=== PATIENT | female | born 1970 | race African-American/Black ===

== ENCOUNTER 2018-02-28 21:49 | Inpatient (IN) | payer OTHER ==
--- NOTE | 2018-02-28 21:55 | PDOC ---
History of Present Illness - General Stated Complaint: BREATHING ISSUES,ANXIETY Time Seen by Provider: 02/28/18 21:55 History Source: Patient Exam Limitations: No Limitations - History of Present Illness Initial Comments: 02/28/18 22:59 Best Contact: Pmhx: Asthma/no history of intubations/last asthma attack: 2 months ago Pshx: Right-sided pneumothorax/chest tube Allergies: NKDA 47-year-old female presents to the emergency department with her complaining of short of breath 9 hours. He she took 1 nebulizer treatment at home at approximately 2125 hrs. this evening with some relief. Patient states for the past 5 days, she's had cold symptoms(rhinorrhea, nasal congestion without facial pain). Patient denies any fever or chills, nausea/vomiting, earaches, sore throat, cough, neck pain/stiffness, chest pain, abdominal discomfort. Patient states this is not one of her severe asthma attacks. She categorizes today's asthma attack as moderate. Timing/Duration: reports: intermittent Past History - Past Medical History Allergies/Adverse Reactions: Allergies Allergy/AdvReac Type Severity Reaction Status Date / Time No Known Allergies Allergy Verified 02/28/18 22:00 Home Medications: Ambulatory Orders Albuterol Sulfate Inhaler - [Ventolin Hfa Inhaler -] 1 - 2 inh PO QID 02/28/18 Mometasone/Formoterol [Dulera 100 Mcg/5 Mcg Inhaler] 10 gm IH DAILY 02/28/18 Montelukast Sodium [Singulair] 10 mg PO DAILY 02/28/18 Prednisone 10 mg PO DAILY 02/28/18 Review of Systems - Review of Systems Able to Perform ROS?: Yes Comments:: 02/28/18 23:02 CONSTITUTIONAL: Absent: fever, chills, diaphoresis, generalized weakness, malaise, loss of appetite HEENT: +rhinorrhea, nasal congestion Absent: throat pain, throat swelling, difficulty swallowing, mouth swelling, ear pain, eye pain, visual Changes CARDIOVASCULAR: Absent: chest pain, loss of consciousness, palpitations, irregular heart rate, peripheral edema RESPIRATORY: +SOB Absent: cough, dyspnea with exertion, orthopnea, wheezing, stridor, hemoptysis GASTROINTESTINAL: Absent: abdominal pain, abdominal distension, nausea, vomiting, diarrhea, constipation, melena, hematochezia GENITOURINARY: Absent: dysuria, frequency, urgency, hesitancy, hematuria, flank pain, genital pain MUSCULOSKELETAL: Absent: myalgia, arthralgia, joint swelling SKIN: Absent: rash, itching, pallor Is the patient limited Croatian proficient: No *Physical Exam - Physical Exam Comments: 02/28/18 23:02 GENERAL: Well developed, well nourished. Awake and alert. No acute distress. HEENT: Normocephalic, atraumatic. PERRLA, EOMI. No conjunctival pallor. Sclera are non- icteric. Moist mucous membranes. Oropharynx is clear. NECK: Supple. Full ROM. No JVD. Carotid pulses 2+ and symmetric, without bruits. No thyromegaly. No lymphadenopathy. CARDIOVASCULAR: Regular rate and rhythm. No murmurs, rubs, or gallops. Distal pulses are 2+ and symmetric. PULMONARY: +Lungs: scattered exp wheezes Neg accessory muscle use No evidence of respiratory distress. No wheezing, rales or rhonchi. ABDOMINAL: Soft. Non-tender. Non-distended. No rebound or guarding. No organomegaly. Normoactive bowel sounds. MUSCULOSKELETAL Normal range of motion at all joints. No bony deformities or tenderness. No CVA tenderness. EXTREMITIES: No cyanosis. No clubbing. No edema. No calf tenderness. SKIN: Warm and dry. Normal capillary refill. No rashes. No jaundice. 03/01/18 03:21 Heart Score/ECG Review - History History: Slightly suspicious - Electrocardiogram EKG: Normal - Age Age: >/= 65 - Risk Factors Risk Factors Heart Score: Yes Hx Obesity Based on the list above the patient has:: 1-2 risk factors - Troponin Troponin: </= normal limit - Score Heart Score - Total: 3 ED Treatment Course - LABORATORY CBC & Chemistry Diagram: 02/28/18 22:00 02/28/18 22:00 - RADIOLOGY Radiograph Interpretation: 02/28/18 23:03 CXR: 2v NAD Progress Note - Progress Note Progress Note: 2258hrs: No accessory muscle use Lung sounds: + wheezes scattered Cardiac: Regular rate and rhythm Pulse ox: 89% 2352hrs: Pulse ox 88% 0132hrs: Pulse ox 91% 0312hrs: Pulse ox 90% 0353hrs: Spoke to Dr. Hurley/hospitalist/ will admit med/surg *DC/Admit/Observation/Transfer Diagnosis at time of Disposition: Exacerbation of asthma Qualifiers: Asthma severity: moderate Asthma persistence: persistent Qualified Code(s): J45.41 - Moderate persistent asthma with (acute) exacerbation - Discharge Dispostion Condition at time of disposition: Guarded Admit: Yes - Referrals Referrals: ON STAFF,NOT [Primary Care Provider] - - Patient Instructions - Post Discharge Activity
[2018-02-28] MEDS ORDERED: ALBUTEROL SO4 2.5/IPRATROPIUM 0.5 INH SOL 3 ML VIAL.NEB. NEB ONE (21:56)
[2018-02-28] MEDS ORDERED: MAGNESIUM SULFATE IN WATER 2 GM/50 ML IVPB IVPB ONE (22:00)
[2018-02-28 22:06] LABS: BASO % 0.3 % (0-2.0); EOS % 0.2 % (0-4.5); HEMATOCRIT 35.7 % (32.4-45.2); HEMOGLOBIN 12.2 GM/dL (10.7-15.3); LYMPH % 14.4 % (8-40); MCH 32.9 pg (25.7-33.7); MCHC 34.1 g/dl (32.0-36.0); MEAN CELL VOLUME 96.5 fl (80-96); MEAN PLT VOLUME 6.9 fl (7.5-11.1); MONO % 6.4 % (3.8-10.2); NEUT % 78.7 % (42.8-82.8); PLATELET COUNT 258 K/MM3 (134-434); WHITE BLOOD COUNT 10.1 K/mm3 (4.0-10.0)
[2018-02-28] MEDS ORDERED: MAGNESIUM SULF 50% (8.12 MEQ/2 ML-1 GM VIAL) ONE (22:07)
[2018-02-28 22:25] LABS: ALBUMIN 3.3 g/dl (3.4-5.0); ALK PHOS 87 U/L (45-117); ANION GAP 5 (8-16); BILIRUBIN,TOTAL 0.2 mg/dL (0.2-1.0); BLOOD UREA NITROGEN 7 mg/dL (7-18); CALCIUM 8.1 mg/dL (8.5-10.1); CHLORIDE 103 mmol/L (98-107); CO2 30 mmol/L (21-32); GLUCOSE,RANDOM 98 mg/dL (74-106); POTASSIUM 3.4 mmol/L (3.5-5.1); SGOT/AST 18 U/L (15-37); SGPT/ALT 26 U/L (12-78); SODIUM 138 mmol/L (136-145); TOT PROT 7.2 g/dl (6.4-8.2)
[2018-03-01] MEDS ORDERED: ALBUTEROL SO4 2.5/IPRATROPIUM 0.5 INH SOL 3 ML VIAL.NEB. NEB ONE (00:34)
[2018-03-01] MEDS ORDERED: predniSONE 20 MG TABLET (UD) PO ONE (00:50)
[2018-03-01] MEDS ORDERED: predniSONE 20 MG TABLET (UD) ONE (00:52)
--- NOTE | 2018-03-01 05:01 | HP ---
CHIEF COMPLAINT: SOB PCP: In the [place] HISTORY OF PRESENT ILLNESS: 47 y/o F w/PMH of asthma, HTN (not on meds) presents to the ER w/worsening SOB. Pt reports having cold symptoms for 5 days (cough, runny nose) which hasn't been improving since and has had worsening SOB and ARANGO during this time. Phlegm from cough was initially white but 3 days ago turned green/yellow but w/o blood and pt reports feeling "congested" and having some diaphoresis at times but denies fever. Pt started taking prednisone 10mg daily since onset of symptoms to help but only got mild relief with prednisone and alb inh. She denies N/V/F/C , CP, abd pain, diarrhea, dysuria, blood in stool, LE swelling, recent travel. Pt has sick contacts at home, both her son and had the cold earlier this week. Currently feels somewhat better. Last hospitalized for asthma "years ago". Has never been intubated. ER course was notable for: (1) duo-neb, Mg, Prednisone, CXR (2) (3) Recent Travel: denies PAST MEDICAL HISTORY: asthma, HTN (not on meds), pneumothorax PAST SURGICAL HISTORY: Social History: Smoking: quit 1.5 months ago. Smoked 1 pack per week for approx 20 years Alcohol: social Drugs: denies Family History: Mother HTN Allergies No Known Allergies Allergy (Verified 02/28/18 22:00) HOME MEDICATIONS: Home Medications Medication Instructions Recorded Albuterol Sulfate Inhaler - 1 - 2 inh PO QID 02/28/18 [Ventolin Hfa Inhaler -] Mometasone/Formoterol [Dulera 100 10 gm IH DAILY 02/28/18 Mcg/5 Mcg Inhaler] Montelukast Sodium [Singulair] 10 mg PO DAILY 02/28/18 Prednisone 10 mg PO DAILY 02/28/18 REVIEW OF SYSTEMS CONSTITUTIONAL: +diaphoresis Absent: fever, chills HEENT: +rhinorrhea CARDIOVASCULAR: Absent: chest pain, lightheadedness, peripheral edema RESPIRATORY: +cough, SOB, ARANGO, wheezing Absent: hemoptysis GASTROINTESTINAL: Absent: abdominal pain, nausea, vomiting, diarrhea, hematochezia GENITOURINARY: Absent: dysuria, frequency NEUROLOGIC: Absent: dizziness PHYSICAL EXAMINATION Vital Signs - 24 hr 02/28/18 03/01/18 22:02 01:30 Temperature 97.8 F Pulse Rate 97 H Respiratory 18 18 Rate Blood Pressure 155/96 O2 Sat by Pulse 89 L 94 L Oximetry (%) GENERAL: Awake, alert, and fully oriented, in no acute distress. Able to speak full sentences w/o getting SOB EYES: extraocular movements intact, sclera anicteric, conjunctiva clear. EARS, NOSE, THROAT: Ears normal, nares patent LUNGS: Diminished breath sounds overall but mild wheezing auscultated in b/l lung mckeon. HEART: Tachycardic, normal S1 and S2 without murmur ABDOMEN: Soft, obese, nontender, not distended, normoactive bowel sounds MUSCULOSKELETAL: Normal range of motion at all joints. No bony deformities or tenderness. No CVA tenderness. LOWER EXTREMITIES: warm, well-perfused. No calf tenderness. No peripheral edema. NEUROLOGICAL: Normal speech. Gait not observed. PSYCHIATRIC: Cooperative. Good eye contact. Appropriate mood and affect. SKIN: Warm, dry Laboratory Results - last 24 hr 02/28/18 02/28/18 22:00 22:00 WBC 10.1 H RBC 3.70 Hgb 12.2 Hct 35.7 MCV 96.5 H MCH 32.9 MCHC 34.1 RDW 15.0 Plt Count 258 MPV 6.9 L Neutrophils % 78.7 Lymphocytes % 14.4 Monocytes % 6.4 Eosinophils % 0.2 Basophils % 0.3 Sodium 138 Potassium 3.4 L Chloride 103 Carbon Dioxide 30 Anion Gap 5 L BUN 7 Creatinine 1.0 Creat Clearance w eGFR 59.18 Random Glucose 98 Calcium 8.1 L Total Bilirubin 0.2 AST 18 ALT 26 Alkaline Phosphatase 87 Total Protein 7.2 Albumin 3.3 L Imaging: CXR - not yet uploaded Active Medications Albuterol/Ipratropium (Duoneb -) 1 amp NEB RQID CARLA Albuterol/Ipratropium (Duoneb -) 1 amp NEB Q6H PRN PRN Reason: SHORTNESS OF BREATH Methylprednisolone Sodium Succinate (Solu-Medrol -) 40 mg IVPUSH BID [facility] ASSESSMENT/PLAN: 47 y/o F w/PMH of asthma, HTN (not on meds) presents to the ER w/worsening SOB. Admitted for asthma exacerbation -Asthma Exacerbation -Pt likely with component of COPD/COPD exacerbation with smoking hx -Solumedrol 40 mg IV q8h -Duonebs standing and PRN -O2 supplementation to keep O2 sat > 90% -c/w duleffie, singulair -Azithromycin 500 mg IV qd -Peak flow -f/u CXR -Hypokalemia -KCl 40 meq PO once -DVT ppx -EAM -FEN -no fluids -hypokalemia as noted above -Regular diet -Dispo: m/s Visit type - Emergency Visit Emergency Visit: Yes ED Registration Date: 03/01/18 Care time: The patient presented to the Emergency Department on the above date and was hospitalized for further evaluation of their emergent condition. - New Patient This patient is new to me today: Yes Date on this admission: 03/01/18 - Critical Care Critical Care patient: No Hospitalist Screening - Colonoscopy Questionnaire Colonoscopy Questionnaire: Colonoscopy Questionnaire - Patient: 50 - 75 years old and never had a screening colonoscopy: Unknown History of colon or rectal polyps, or CA: Unknown History of IBD, Crohn's disease or UC: Unknown History of abdominal radiation therapy as a child: Unknown - Relative: 1 with colon or rectal CA, or polyps at age 60 or younger: Unknown Colon or rectal CA diagnosed at age 45 or younger: Unknown Multiple relatives with colon or rectal CA: Unknown - Outcome: Screening Result: Negative Screen
[2018-03-01] MEDS ORDERED: ALBUTEROL SO4 2.5/IPRATROPIUM 0.5 INH SOL 3 ML VIAL.NEB. NEB PRN (05:04)
[2018-03-01] MEDS ORDERED: POTASSIUM CHLORIDE TABS 20 MEQ TABLET.ER (FP) PO ONE ×2 (05:25→05:43)
--- NOTE | 2018-03-01 06:37 | PN ---
Teaching Attending Note Name of Resident: Christiano Garcia ATTENDING PHYSICIAN STATEMENT I saw and evaluated the patient. Chart, data, reviewed. I reviewed the resident's note and discussed the case with the resident. I agree with the resident's findings and plan as documented. SUBJECTIVE: 47 y/o morbidly obese F w/PMH of asthma, HTN presented after 5 days of shortness of breath which was caused by URI. She reported wheezing which was not improved by 10mg prednisone or albuterol at home. She denied ever being intubated for asthma in the past. She is a former smoker and quit about 2 months ago. She is scheduled to have PFTs performed. Unsure what her best peak flow was. OBJECTIVE: Last Vital Signs Temp Pulse Resp BP Pulse Ox 97.8 F 97 H 18 155/96 94 L 02/28/18 22:02 02/28/18 22:02 03/01/18 01:30 02/28/18 22:02 03/01/18 01:30 General- appears comfortable, NAD, resting comfortably, morbidly obese, speaks in full sentences HEENT- at, nc, moist oral mucosa Neck - no JVD CV -s1+S2+ RRR Chest - mild diffuse expiratory wheezing, good air movement Abdome - obese, nontender, BS+ Ext- no pedal edema appreciated Abnormal Lab Results 02/28/18 02/28/18 22:00 22:00 WBC 10.1 H MCV 96.5 H MPV 6.9 L Potassium 3.4 L Anion Gap 5 L Calcium 8.1 L Albumin 3.3 L ASSESSMENT AND PLAN: #47yo obese woman with acute asthma exacerbation likely triggered by recent URI. Recently stopped smoking. Second hand smoke from may have also triggered it. Initially was found to be hypoxemic. Refused ABG. Now improved after prednisone, nebulizations. -admit to med/surg -monitor peak flow -supplemental o2 via nasal cannula -duonebs q6hrs -methylprednisone 40mg IV q12hrs -azithromycin 500mg PO daily then 250mg PO daily for 5 days -Inhaled corticosteroid -CXR -EKG #DVT ppx- heparin sc
[2018-03-01 08:04] LABS: BASO % 0.2 % (0-2.0); EOS % 0.1 % (0-4.5); HEMATOCRIT 40.2 % (32.4-45.2); HEMOGLOBIN 13.4 GM/dL (10.7-15.3); MCH 32.3 pg (25.7-33.7); MCHC 33.3 g/dl (32.0-36.0); MEAN CELL VOLUME 97.2 fl (80-96); MEAN PLT VOLUME 7.4 fl (7.5-11.1); MONO % 1.2 % (3.8-10.2); NEUT % 94.5 % (42.8-82.8); PLATELET COUNT 310 K/MM3 (134-434); RBC 4.13 M/mm3 (3.60-5.2); RDW 14.9 % (11.6-15.6); WHITE BLOOD COUNT 10.8 K/mm3 (4.0-10.0)
[2018-03-01 08:17] LABS: ALBUMIN 3.8 g/dl (3.4-5.0); ANION GAP 2 (8-16); BLOOD UREA NITROGEN 6 mg/dL (7-18); CALCIUM 8.9 mg/dL (8.5-10.1); CHLORIDE 103 mmol/L (98-107); CO2 30 mmol/L (21-32); MAGNESIUM 2.5 mg/dL (1.8-2.4); POTASSIUM 4.8 mmol/L (3.5-5.1); SODIUM 135 mmol/L (136-145)
[2018-03-01 08:18] LABS: VENOUS PC02 43.9 mmHg (38-52); VENOUS PH 7.42 (7.32-7.42); VENOUS PO2 25.1 mmHg (28-48)
[2018-03-01 08:20] LABS: ALK PHOS 100 U/L (45-117); BILIRUBIN,TOTAL 0.3 mg/dL (0.2-1.0); CREATININE 0.9 mg/dL (0.55-1.02); GLUCOSE,RANDOM 127 mg/dL (74-106); SGOT/AST 22 U/L (15-37); SGPT/ALT 27 U/L (12-78); TOT PROT 8.5 g/dl (6.4-8.2)
[2018-03-01] MEDS: ALBUTEROL SO4 2.5/IPRATROPIUM 0.5 INH SOL 3 ML VIAL.NEB. NEB SCH ×4 (08:51→20:38)
[2018-03-01] MEDS: methylPREDNISolone NA SUCC 40 MG/1 ML VIAL IVPUSH SCH ×2 (10:10→21:40)
--- NOTE | 2018-03-01 11:47 | PN ---
Teaching Attending Note Name of Resident: Oleg Salmeron SUBJECTIVE: patient seen and examined. breathing improved, symptoms at rest, also cough with greenish sputum. OBJECTIVE: Vital Signs Period Temp Pulse Resp BP Sys/Celestin Pulse Ox Last 24 Hr 97.8 F-98.9 F 88-97 18-20 138-155/89-96 89-94 Intake & Output 02/26/18 02/27/18 02/28/18 03/01/18 23:59 23:59 23:59 23:59 Weight 229 lb 4.492 oz General: sitting in bed in no acute distress Chest: good air entry, mild expiratory wheezing CVS: S1s2 regular Abdomen: soft, obese, NT extremities: no edema Home Medication List Medication Instructions Recorded Confirmed Type Albuterol Sulfate Inhaler - 1 - 2 inh PO QID 02/28/18 02/28/18 History [Ventolin Hfa Inhaler -] Mometasone/Formoterol [Dulera 100 10 gm IH DAILY 02/28/18 02/28/18 History Mcg/5 Mcg Inhaler] Montelukast Sodium [Singulair] 10 mg PO DAILY 02/28/18 02/28/18 History Prednisone 10 mg PO DAILY 02/28/18 02/28/18 History Active Medications Generic Name Dose Route Start Last Admin Trade Name Freq PRN Reason Stop Dose Admin Albuterol/Ipratropium 1 amp 03/01/18 08:00 03/01/18 08:51 Duoneb - NEB 1 amp RQID CARLA Administration Albuterol/Ipratropium 1 amp 03/01/18 05:04 Duoneb - NEB Q6H PRN SHORTNESS OF BREATH Methylprednisolone Sodium Succinate 40 mg 03/01/18 10:00 03/01/18 10:10 Solu-Medrol - IVPUSH 40 mg BID CARLA Administration Laboratory Results - last 24 hr 02/28/18 02/28/18 03/01/18 22:00 22:00 07:36 WBC 10.1 H 10.8 H RBC 3.70 4.13 Hgb 12.2 13.4 Hct 35.7 40.2 MCV 96.5 H 97.2 H MCH 32.9 32.3 MCHC 34.1 33.3 RDW 15.0 14.9 Plt Count 258 310 D MPV 6.9 L 7.4 L Neutrophils % 78.7 94.5 H D Lymphocytes % 14.4 4.0 L D Monocytes % 6.4 1.2 L D Eosinophils % 0.2 0.1 Basophils % 0.3 0.2 VBG pH POC VBG pCO2 POC VBG pO2 Mixed VBG HCO3 Sodium 138 Potassium 3.4 L Chloride 103 Carbon Dioxide 30 Anion Gap 5 L BUN 7 Creatinine 1.0 Creat Clearance w eGFR 59.18 Random Glucose 98 Calcium 8.1 L Magnesium Total Bilirubin 0.2 AST 18 ALT 26 Alkaline Phosphatase 87 Total Protein 7.2 Albumin 3.3 L 03/01/18 03/01/18 07:36 07:36 WBC RBC Hgb Hct MCV MCH MCHC RDW Plt Count MPV Neutrophils % Lymphocytes % Monocytes % Eosinophils % Basophils % VBG pH 7.42 POC VBG pCO2 43.9 POC VBG pO2 25.1 L Mixed VBG HCO3 27.8 H Sodium 135 L Potassium 4.8 Chloride 103 Carbon Dioxide 30 Anion Gap 2 L BUN 6 L Creatinine 0.9 Creat Clearance w eGFR > 60 Random Glucose 127 H Calcium 8.9 Magnesium 2.5 H Total Bilirubin 0.3 D AST 22 ALT 27 Alkaline Phosphatase 100 Total Protein 8.5 H Albumin 3.8 ASSESSMENT AND PLAN: 47 yom with PMHx of Asthma, HTN, CIRA admitted with ACute asthma exacerbation and recent URI like illness -Acute Asthma exacerbation/recent URI like illness -HTN -Morbid obesity -Hypokalemia, resolved PLan; Check oxygen neds, Nebs prn. Change to PO prednisone in AM if continues to improve. Influenza swab neg. Azithromycin x 5 days. DVTPPX with lovenox Pulmonary input if fails to improve. Dispo planning in 24 hours if oxygenating well, improved and no new concerns. Plan discussed with patient in detail, all questions answered.
[2018-03-01 12:19] VITALS: BMI 38.2
--- NOTE | 2018-03-01 15:58 | EKG ---
Test Reason : Blood Pressure : / mmHG Vent. Rate : 083 BPM Atrial Rate : 083 BPM P-R Int : 142 ms QRS Dur : 096 ms QT Int : 380 ms P-R-T Axes : 064 -40 046 degrees QTc Int : 446 ms NORMAL SINUS RHYTHM LEFT AXIS DEVIATION NONSPECIFIC ST ABNORMALITY ABNORMAL ECG NO PREVIOUS ECGS AVAILABLE Confirmed by MD ADAN, SHANDRA ([id number]) on 03/01/2018 3:58:24 PM Referred By: Confirmed By:SHANDRA ARELLANO MD
[2018-03-02 05:33] VITALS: TEMP 98.4
[2018-03-02] MEDS: ALBUTEROL SO4 2.5/IPRATROPIUM 0.5 INH SOL 3 ML VIAL.NEB. NEB SCH ×2 (07:35→11:25)
--- NOTE | 2018-03-02 07:38 | PN ---
Physical Exam: SUBJECTIVE: Patient seen and examined. No events overnight. Reports breathing improved; continues to have productive cough OBJECTIVE: Vital Signs Period Temp Pulse Resp BP Sys/Celestin Pulse Ox Last 24 Hr 98.4 F-98.9 F 80-99 18-20 120-144/71-94 93-96 GENERAL: aaox3, nad, speaking in full sentences without dyspnea LUNGS: +airway entry, bilateral scattered expiratory wheezes HEART: rrr, normal s1/s2 ABDOMEN: obese, soft, NTND, +bowel sounds LOWER EXTREMITIES: 2+ DP pulses, wwp, no edema Laboratory Results - last 24 hr 03/01/18 03/01/18 03/01/18 07:36 07:36 07:36 WBC 10.8 H RBC 4.13 Hgb 13.4 Hct 40.2 MCV 97.2 H MCH 32.3 MCHC 33.3 RDW 14.9 Plt Count 310 D MPV 7.4 L Neutrophils % 94.5 H D Lymphocytes % 4.0 L D Monocytes % 1.2 L D Eosinophils % 0.1 Basophils % 0.2 VBG pH 7.42 POC VBG pCO2 43.9 POC VBG pO2 25.1 L Mixed VBG HCO3 27.8 H Sodium 135 L Potassium 4.8 Chloride 103 Carbon Dioxide 30 Anion Gap 2 L BUN 6 L Creatinine 0.9 Creat Clearance w eGFR > 60 Random Glucose 127 H Calcium 8.9 Magnesium 2.5 H Total Bilirubin 0.3 D AST 22 ALT 27 Alkaline Phosphatase 100 Total Protein 8.5 H Albumin 3.8 Microbiology 03/01/18 12:32 Nasopharyngeal Swab Influenza Types A,B Antigen (JOSEPH) - Final 03/01/18 12:32 Nasopharyngeal Swab - Final Active Medications Albuterol/Ipratropium (Duoneb -) 1 amp NEB RQID [facility] Last Admin: 03/01/18 20:38 Dose: 1 amp Albuterol/Ipratropium (Duoneb -) 1 amp NEB Q6H PRN PRN Reason: SHORTNESS OF BREATH Methylprednisolone Sodium Succinate (Solu-Medrol -) 40 mg IVPUSH BID [facility] Last Admin: 03/01/18 21:40 Dose: 40 mg ASSESSMENT/PLAN: 47yo woman with PMH of asthma, HTN (not on meds) who p/w worsening SOB and found to have acute asthma exacerbation. #Asthma Exacerbation -Solumedrol 40 mg IV q8h --> switched to PO -Duonebs standing and PRN -O2 supplementation to keep O2 sat > 90% -c/w dulera, singulair -Azithromycin 500 mg IV x 3days -Daily Peak flows (last night 100, 150 pre and post tx) #Hypokalemia, resolved #DVT PPX - EAM #FEN: PO intake / lytes wnl / Na controlled iet #Dispo: m/s, will d/c today after RT assessment for home O2 FULL code Visit type - Emergency Visit Emergency Visit: No - New Patient This patient is new to me today: Yes Date on this admission: 03/02/18 - Critical Care Critical Care patient: No
--- NOTE | 2018-03-02 08:32 | PN ---
Teaching Attending Note Name of Resident: Ale Stover ATTENDING PHYSICIAN STATEMENT I saw and evaluated the patient. I reviewed the resident's note and discussed the case with the resident. I agree with the resident's findings and plan as documented with exceptions mentioned below. SUBJECTIVE: Patient seen and examined. breathing continues to improve, more symptoms with exertion. OBJECTIVE: Vital Signs Period Temp Pulse Resp BP Sys/Celestin Pulse Ox Last 24 Hr 98.4 F-98.9 F 80-99 18-20 120-144/71-94 93-96 Intake & Output 02/27/18 02/28/18 03/01/18 03/02/18 23:59 23:59 23:59 23:59 Intake Total 800 Output Total 2 Balance 798 Weight 229 lb 4.492 oz 230 lb General: sitting in bed conversing, no acute distress, pleasant Chest: markedly improved air entry, no wheezing noted bilaterally on exam. Home Medication List Medication Instructions Recorded Confirmed Type Albuterol Sulfate Inhaler - 1 - 2 inh PO QID 02/28/18 02/28/18 History [Ventolin Hfa Inhaler -] Mometasone/Formoterol [Dulera 100 10 gm IH DAILY 02/28/18 02/28/18 History Mcg/5 Mcg Inhaler] Montelukast Sodium [Singulair] 10 mg PO DAILY 02/28/18 02/28/18 History Prednisone 10 mg PO DAILY 02/28/18 02/28/18 History Active Medications Generic Name Dose Route Start Last Admin Trade Name Freq PRN Reason Stop Dose Admin Albuterol/Ipratropium 1 amp 03/01/18 08:00 03/01/18 20:38 Duoneb - NEB 1 amp RQID CARLA Administration Albuterol/Ipratropium 1 amp 03/01/18 05:04 Duoneb - NEB Q6H PRN SHORTNESS OF BREATH Methylprednisolone Sodium Succinate 40 mg 03/01/18 10:00 03/01/18 21:40 Solu-Medrol - IVPUSH 40 mg BID CARLA Administration Montelukast Sodium 10 mg 03/02/18 22:00 Singulair - PO HS CARLA Microbiology 03/01/18 12:32 Nasopharyngeal Swab Influenza Types A,B Antigen (JOSEPH) - Final 03/01/18 12:32 Nasopharyngeal Swab - Final ASSESSMENT AND PLAN: 47 yom with PMHx of Asthma, HTN, CIRA admitted with ACute asthma exacerbation and recent URI like illness -Acute Asthma exacerbation/recent URI like illness -HTN -Morbid obesity -Hypokalemia, resolved PLan; Looks great, no wheezing and improved air entry today. Change to PO prednisone with slow taper Azithromycin for 3 days Needs oxygen with exertion/activity, d/c on home oxygen, anticipate will be tapered off over next 1-2 weeks as improves. Clinical exam, presentation and symptoms consistent with asthma exacerbation currently. Suspect also has underlying CIRA/OHS contributory to her current hypoxia on exertion. Needs outpatient PFTs and sleep study. Advised to follow up with her mulcher operator in 1 week (has appt for 03/09) Continue home inhalers and singulair. Dispo d/c home today with home oxygen. Patient advised to return if fevers, chills, worsening breathing or new concerns. Plan discussed with patient in detail, all questions answered.
[2018-03-02] MEDS ORDERED: AZITHROMYCIN 500 MG TABLET PO SCH (10:00)
[2018-03-02] MEDS ORDERED: predniSONE 20 MG TABLET (UD) PO SCH (10:00)
[2018-03-02] MEDS: guaiFENesin 200 MG/10 ML 10 ML UNIT-DOSE CUPS PO PRN ×2 (10:37→16:10)
[2018-03-02 11:50] VITALS: BP 135/80
[2018-03-02 14:44] VITALS: PULSE 102
[2018-03-02] MEDS ORDERED: MONTELUKAST NA 10 MG TABLET PO SCH (22:00)
--- NOTE | 2018-03-02 23:25 | DS ---
Physical Exam: HOSPITAL COURSE: Date of Admission:03/01/18 Date of Discharge: 03/02/18 Pre-Hospital Course: 47yo woman with PMH of asthma and HTN (not on meds) who presents to the ED w/ worsening SOB. Pt reports having cold symptoms for 5 days (cough, runny nose) with worsening SOB and ARANGO. Phlegm from cough was initially white but 3 days ago turned green/yellow but w/o blood. Reports feeling "congested" and having some diaphoresis at times, but denies fever. Pt started taking prednisone 10mg daily since onset of symptoms, but with only minimal relief. Denies N/V/F/C, CP , abd pain, diarrhea, dysuria, blood in stool, LE swelling, recent travel. Pt has sick contacts at home; both her son and were sick within past week. Last hospitalized for asthma was "years ago". Pt has never been intubated. ER course was notable for: (1) duo-neb, Mg, Prednisone, CXR Subsequent Hospital Course: Patient was admitted for acute exacerbation asthma. Infectious work-up was negative, including negative Flu and CXR w/o focal consolidation. Patient was afebrile during admissionn. She was treated with IV steroids and duo nebs, which improved her breathing. On discharge, she was transitioned to a slow PO prednisone taper and a short course of Azithromycin 500mg PO x3 days. She was found to desat with activity, and was sent home on 3L NC O2. Her pre- ambulatory resting pSaO2 was 92% RA, post-exercise SpO2 89% in RA and 93% on 3L NC. Patient's hypertension was well controlled throughout admission. She was eating, voiding, and ambulating without issue prior to discharge. 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 There is no sign of gross consolidation. The bones and soft tissues are intact. For more complete evaluation, CT and comparison to prior studies may be of help. Minutes to complete discharge: 30 Discharge Summary Reason For Visit: EXACERBATION OF ASTHMA Condition: Stable - Instructions Diet, Activity, Other Instructions: You were admitted to the hospital for acute exacerbation of your asthma. You were started on a steroid taper and Azithromycin (an antibiotic). You are also being sent home with Oxygen therapy; use 3L of oxygen through the nasal cannula with activty and during sleep especially. Medications: Continue taking your regular home medications with the following additions: 1) You are on a steroid taper, and you will be decreasing the Prednisone dose by 10mg every day. Follow the schedule below. Your first dose will be tomorrow. 03/02-03/03: 60mg Prednisone daily 03/04-03/06: 50mg Prednisone daily 03/07-03/09: 40mg Prednisone daily 03/10-: 30mg Prednisone daily 03/13-: 20mg Prednisone daily Then continue prednisone 10 mg daily from 03/16 as instructed by your Supervisor Press Room. 2) Take Azithromycin (an antibiotic) 500mg daily tomorrow (03/03) and Friday (). 3) Use Duo nebulizer 1amp every 6 hours as needed for your shortness of breath. Do no exceed more than 4 amp per day. Follow-ups: -See your Supervisor Press Room on 03/09/18. You should discuss weaning off your home oxygen. -You should have your lung function tested as well as a sleep study to evaluate whether you have sleep apnea. Discuss this with your Supervisor Press Room. A referral to Dr. Donahue for a sleep study is also provided. Please return to the Emergency Department if you have fever, chills, difficulty breathing or any worsening, new or concerning symptoms. Referrals: ON STAFF,NOT [Primary Care Provider] - Mayur Donahue MD [Staff Physician] - Disposition: HOME - Home Medications Comprehensive Discharge Medication List: Ambulatory Orders Albuterol Sulfate Inhaler - [Ventolin HFA Inhaler -] 1 - 2 inh PO QID 02/28/18 Mometasone/Formoterol [Dulera 100 Mcg/5 Mcg Inhaler] 10 gm IH DAILY 02/28/18 Montelukast Sodium [Singulair] 10 mg PO DAILY 02/28/18 Albuterol 2.5/Ipratropium 0.5 [Duoneb -] 1 amp NEB Q6H PRN #28 amp 03/02/18 Azithromycin 500 mg PO DAILY #2 tablet 03/02/18 Miscellaneous Medical Supply [Outpatient Order] 1 each ASDIR #1 misc Prednisone See Taper PO DAILY #54 tablet 03/02/18 This patient is new to me today: Yes Date on this admission: 03/02/18 Emergency Visit: No Critical Care patient: No - Discharge Referral Referred to [facility] No
== END 2018-03-02 18:17 | disposition home or self-care (01) | DRG 141 ==
LOC: JER 21:49 → JERBED 03-01 03:54 → J6S 03-01 12:42
PROVIDERS: ADMIT Internal Medicine; ATTEND Hospitalist
DX: J45.901 Unspecified asthma with (acute) exacerbation (principal); E66.01 Morbid (severe) obesity due to excess calories; R09.02 Hypoxemia; E87.6 Hypokalemia; I10 Essential (primary) hypertension; Z68.38 Body mass index [BMI] 38.0-38.9, adult; G47.33 Obstructive sleep apnea (adult) (pediatric); Z87.891 Personal history of nicotine dependence
CPT/HCPCS: 36415; 71046-TC-FY; 80053; 82803; 83735; 85025; 87804; 93005; 93010; 94150; 94640; 94761; 99285-25

== ENCOUNTER 2018-12-27 14:18 | Emergency (ER) | payer OTHER ==
[2018-12-27 14:26] VITALS: BP 145/86; PULSE 90; TEMP 98.4; BMI 39.4
[2018-12-27] MEDS ORDERED: ALBUTEROL SO4 2.5/IPRATROPIUM 0.5 INH SOL 3 ML VIAL.NEB. NEB ONE ×2 (14:43→14:48)
[2018-12-27] MEDS ORDERED: methylPREDNISolone NA SUCC 125 MG/2 ML VIAL IM ONE (14:48)
--- NOTE | 2018-12-27 15:08 | PDOC ---
History of Present Illness - General Chief Complaint: Asthma Stated Complaint: ASTHMA Time Seen by Provider: 12/27/18 14:43 History Source: Patient Exam Limitations: Clinical Condition - History of Present Illness Initial Comments: 12/27/18 15:02 Patient with history of asthma on home oxygen therapy at 3 L present for asthma exacerbation and wheezing while waiting for her daughter who is being seen in the ED and request asthma treatment. Patient reported she left her oxygen in the car. Patient is being follow-up by tool and die inspector in the [place] and report she is on oxygen therapy because her O2 level drop every time she walks but has not been diagnosed with COPD or any other pulmonary disease. Patient reported 20 year with history of smoking cigarettes but has not smoked in over 10 years. Patient denies fever, chills, shortness of breath, dizziness. Patient denies any other symptoms Timing/Duration: 1-3 hours Past History - Past Medical History Allergies/Adverse Reactions: Allergies Allergy/AdvReac Type Severity Reaction Status Date / Time No Known Allergies Allergy Verified 02/28/18 22:00 Home Medications: Ambulatory Orders Albuterol Sulfate Inhaler - [Ventolin HFA Inhaler -] 1 - 2 inh PO QID 02/28/18 Mometasone/Formoterol [Dulera 100 Mcg/5 Mcg Inhaler] 10 gm IH DAILY 02/28/18 Montelukast Sodium [Singulair] 10 mg PO DAILY 02/28/18 Albuterol 2.5/Ipratropium 0.5 [Duoneb -] 1 amp NEB Q6H PRN #28 amp 03/02/18 Prednisone 20 mg PO DAILY 12/27/18 Asthma: Yes COPD: No Disorders: No Liver Disease: No - Immunization History Immunization Up to Date: Yes - Suicide/Smoking/Psychosocial Hx Smoking History: Former smoker Have you smoked in the past 12 months: No Number of Cigarettes Smoked Daily: 8 If you are a former smoker, when did you quit?: [id number] AGO Information on smoking cessation initiated: No 'Breaking Loose' booklet given: 03/01/18 Hx Alcohol Use: No Drug/Substance Use Hx: No Review of Systems - Review of Systems Able to Perform ROS?: Yes Is the patient limited Tongan proficient: No Constitutional: No: Chills, Fever, Malaise HEENTM: No: Symptoms Reported, See HPI, Eye Pain, Blurred Vision, Tearing, Recent change in vision, Double Vision, Cataracts, Ear Pain, Ocular Prothesis, Ear Discharge, Nose Pain, Nose Congestion, Tinnitus, Nose Bleeding, Hearing Loss , Throat Pain, Throat Swelling, Mouth Pain, Dental Problems, Difficulty Swallowing, Mouth Swelling, Other Respiratory: Yes: See HPI, Wheezing. No: Cough, Orthopnea, Shortness of Breath , SOB with Exertion, SOB at Rest, Stridor, Productive cough, Hemoptysis Cardiac (ROS): No: Symptoms Reported, See HPI, Chest Pain, Edema, Irregular Heart Rate, Lightheadedness, Palpitations, Syncope, Chest Tightness, Other ABD/GI: No: Nausea, Vomiting All Other Systems: Reviewed and Negative *Physical Exam - Vital Signs Last Vital Signs Temp Pulse Resp BP Pulse Ox 98.4 F 90 22 H 145/86 94 L 12/27/18 14:22 12/27/18 14:22 12/27/18 14:22 12/27/18 14:22 12/27/18 14:22 - Physical Exam Comments: 12/27/18 15:05 GENERAL: Well developed, well nourished. Awake and alert. No acute distress. HEENT: Normocephalic, atraumatic. PERRLA, EOMI. No conjunctival pallor. Sclera are non-icteric. Moist mucous membranes. Oropharynx is clear. NECK: Supple. Full ROM. CARDIOVASCULAR: Regular rate and rhythm. No murmurs, rubs, or gallops. Distal pulses are 2+ and symmetric. PULMONARY: Mild diffuse wheezing.No evidence of respiratory distress. No rales or rhonchi. ABDOMINAL: Soft. Non-tender. Non-distended. No rebound or guarding. No organomegaly. Normoactive bowel sounds. MUSCULOSKELETAL Normal range of motion at all joints. EXTREMITIES: No cyanosis. No clubbing. SKIN: Warm and dry. Normal capillary refill. NEUROLOGICAL: Alert, awake, appropriate. Gait is normal without ataxia. PSYCHIATRIC: Cooperative. Good eye contact. Appropriate mood General Appearance: Yes: Nourished, Appropriately Dressed. No: Apparent Distress Moderate Sedation - Procedure Monitoring Vital Signs: Procedure Monitoring Vital Signs Temperature 98.4 F 12/27/18 14:22 Pulse Rate 90 12/27/18 14:22 Respiratory Rate 22 H 12/27/18 14:22 Blood Pressure 145/86 12/27/18 14:22 O2 Sat by Pulse Oximetry (%) 94 L 12/27/18 14:22 ED Treatment Course - Medications Given in the ED: ED Medications Discontinued Medications Generic Name Dose Route Start Last Admin Trade Name Zac PRN Reason Stop Dose Admin Albuterol/Ipratropium 2 amp 12/27/18 14:43 12/27/18 14:59 Duoneb - NEB 12/27/18 14:44 2 amp ONCE ONE Administration Medical Decision Making - Medical Decision Making 12/27/18 15:06 Patient with history of asthma on home oxygen at 3 L and 20 year smoking history present with complaint of asthma exacerbation and leaving her home oxygen in the car while waiting for her daughter who was being seen in the ED. Patient on daily 10mg prednisone which was given by tool and die inspector 2 days ago. Exam significant for mild diffuse wheezing with no evidence of acute respiratory distress. No rhonchi or rales on lung exams. O2 sat are 94% in room air. Exam is otherwise normal. Nebulizer treatment with albuterol and Atrovent ordered. Solu-Medrol 125 mg IM ordered. Patient be discharged home to continue home prednisone and home oxygen therapy with pulmonology follow-up. 12/27/18 15:12 12/27/18 16:10 *DC/Admit/Observation/Transfer Diagnosis at time of Disposition: Exacerbation of asthma Qualifiers: Asthma severity: moderate Asthma persistence: persistent Qualified Code(s): J45.41 - Moderate persistent asthma with (acute) exacerbation - Discharge Dispostion Disposition: HOME Condition at time of disposition: Stable Decision to Admit order: No - Referrals Referrals: Javier Colon MD [Staff Physician] - - Patient Instructions Printed Discharge Instructions: Chronic Obstructive Pulmonary Disease, Asthma - - Adult Additional Instructions: Your symptoms of low oxygen is most likely from COPD than asthma. Take home medication as prescribed and follow-up referred pulmonology for proper diagnosis as soon as possible. - Post Discharge Activity
[2018-12-27] MEDS ORDERED: methylPREDNISolone NA SUCC 125 MG/2 ML VIAL ONE (15:10)
== END 2018-12-27 15:46 | disposition home or self-care (01) ==
LOC: JER 14:18
PROC: 3E0F7GC Introduction of Other Therapeutic Substance into Respiratory Tract, Via Natural or Artificial Opening (ICD-10-PCS; principal; 2018-12-27)
PROC: 3E0233Z Introduction of Anti-inflammatory into Muscle, Percutaneous Approach (ICD-10-PCS; 2018-12-27)
DX: J45.41 Moderate persistent asthma with (acute) exacerbation (principal); Z99.81 Dependence on supplemental oxygen
CPT/HCPCS: 94640; 96372; 99281-25

== ENCOUNTER 2019-03-19 13:02 | Emergency (ER) | payer OTHER ==
--- NOTE | 2019-03-19 13:16 | PDOC ---
History of Present Illness - General Chief Complaint: Cold Symptoms Stated Complaint: COLD SYMPTOMS Time Seen by Provider: 03/19/19 13:16 History Source: Patient Exam Limitations: No Limitations - History of Present Illness Initial Comments: 03/19/19 13:17 48 year old woman with a history of low back pain, asthma and HTN who presents with 5 days of productive green phlegm cough and shortness of breath for 4 days. The patient also complains of L mid back soreness and "muscle spasms" that radiates into the L side rated 7/10 also ongoing for 5 days and with polyuria. The patient excedrin at home with moderate relief. The patient denies any fevers, chest pain, nausea, vomiting, diarrhea, dysuria or hematuria. She complains of 3 days of constipation. She has no other complaints aside from her cough and back pain. Patient is smoker and uses 3L O2 at home when she is walking Past History - Past Medical History Allergies/Adverse Reactions: Allergies Allergy/AdvReac Type Severity Reaction Status Date / Time No Known Allergies Allergy Verified 03/19/19 13:18 Home Medications: Ambulatory Orders Albuterol Sulfate Inhaler - [Ventolin HFA Inhaler -] 1 - 2 inh PO QID 02/28/18 Mometasone/Formoterol [Dulera 100 Mcg/5 Mcg Inhaler] 10 gm IH DAILY 02/28/18 Montelukast Sodium [Singulair] 10 mg PO DAILY 02/28/18 Albuterol 2.5/Ipratropium 0.5 [Duoneb -] 1 amp NEB Q6H PRN #28 amp 03/02/18 Prednisone 20 mg PO DAILY 12/27/18 Asthma: Yes COPD: No Disorders: No Liver Disease: No - Immunization History Immunization Up to Date: Yes - Suicide/Smoking/Psychosocial Hx Smoking History: Former smoker Have you smoked in the past 12 months: Yes Number of Cigarettes Smoked Daily: 8 If you are a former smoker, when did you quit?: [id number] AGO 'Breaking Loose' booklet given: 03/01/18 Hx Alcohol Use: Yes (SOCIALLY) Drug/Substance Use Hx: No Review of Systems - Review of Systems Able to Perform ROS?: Yes Comments:: 03/19/19 13:41 GENERAL/CONSTITUTIONAL: No fever or chills. No weakness. HEAD, EYES, EARS, NOSE AND THROAT: No change in vision. No ear pain or discharge. No sore throat. CARDIOVASCULAR: No chest pain RESPIRATORY: No wheezing, or hemoptysis. GASTROINTESTINAL: No nausea, vomiting, diarrhea GENITOURINARY: No dysuria + frequncy MUSCULOSKELETAL: No joint or muscle swelling or pain. No neck or back pain. SKIN: No rash NEUROLOGIC: No headache, vertigo, loss of consciousness, or change in strength/ sensation. ENDOCRINE: No increased thirst. No abnormal weight change HEMATOLOGIC/LYMPHATIC: No anemia, easy bleeding, or history of blood clots. ALLERGIC/IMMUNOLOGIC: No hives or skin allergy. Is the patient limited French proficient: No *Physical Exam - Physical Exam Comments: 03/19/19 13:40 GENERAL: Awake, alert, and fully oriented, in no acute distress HEAD: No signs of trauma, normocephalic, atraumatic EYES: EOMI, sclera anicteric, conjunctiva clear ENT: oropharynx clear without exudates. Moist mucosa NECK: Normal ROM, supple LUNGS: No distress, speaks full sentences, decreased breath sounds throughout HEART: Regular rate and rhythm, normal S1 and S2, no murmurs, rubs or gallops, peripheral pulses normal and equal bilaterally. ABDOMEN: Soft, nontender, normoactive bowel sounds. No guarding, no rebound. No masses BACK: L sided mid paraspinal slight tenderness to palpation, no CVA tendneress, no spinal tenderness to palpation EXTREMITIES : Normal inspection, Normal range of motion, no edema. No clubbing or cyanosis. NEUROLOGICAL: Cranial nerves II through XII grossly intact. Normal speech, normal gait, no focal sensorimotor deficits SKIN: Warm, Dry, normal turgor, no rashes or lesions noted ED Treatment Course - LABORATORY CBC & Chemistry Diagram: 03/19/19 15:00 03/19/19 15:00 Medical Decision Making - Medical Decision Making 03/19/19 13:40 48 year old woman with a history of low back pain, asthma and HTN who presents with 5 days of productive green phlegm cough and shortness of breath for 4 days. The patient complains of L mid back soreness and "muscle spasms" that radiates into the L side rated 7/10 also ongoing for 5 days and with polyuria. ED Course: ddx ibnlt: r/o pna vs acs vs copd exacerbation r/o uti vs pyelo liekly muscle spasm cbc, cmp ,trop, ekg, cxr duoneb, tylenol 03/19/19 16:15 Patient reassessed, feels improved, wants to go home *DC/Admit/Observation/Transfer Diagnosis at time of Disposition: Shortness of breath, Back pain, Musculoskeletal pain - Discharge Dispostion Disposition: HOME Condition at time of disposition: Stable Decision to Admit order: No - Referrals - Patient Instructions Printed Discharge Instructions: DI for Asthma -- Adult, DI for Chronic Obstructive Pulmonary Disease, DI for Musculoskeletal Pain Additional Instructions: You were seen in the ED for complaints of productive cough and L sided back pain. In the ED you were evaluated with labwork and imaging. Your results were unremarkable and you showed improvement with breathing treatment and pain medications. There does not appear to be an acute need for immediate hospitalization. You are advised to follow up with your Primary Care Physician within 1 week. Use a warm heating pad for your back pain and take Tylenol and Motrin for muscle relaxation. Return to the ED immediately if you experience worsening back pain, shortness of breath, chest pain, nausea, sweating, numbness or tingling in the back or legs, muscle weakness, urinary changes including retention or incontinence. - Post Discharge Activity Forms/Work/School Notes: Back to Work
[2019-03-19 13:21] VITALS: TEMP 98.3; BMI 38.2
[2019-03-19] MEDS ORDERED: ALBUTEROL SO4 2.5/IPRATROPIUM 0.5 INH SOL 3 ML VIAL.NEB. NEB ONE ×2 (13:34→14:31)
[2019-03-19] MEDS ORDERED: ACETAMINOPHEN 1000 MG/100 ML VIAL (NON FORMULARY) IVPB ONE (13:50)
[2019-03-19] MEDS ORDERED: ACETAMINOPHEN INJECTION 100 ML IVPB ONE (14:31)
[2019-03-19 15:34] LABS: BASO % 0.5 % (0-2.0); EOS % 0.6 % (0-4.5); HEMATOCRIT 38.6 % (32.4-45.2); HEMOGLOBIN 13.1 GM/dL (10.7-15.3); LYMPH % 18.6 % (8-40); MCH 33.4 pg (25.7-33.7); MCHC 33.9 g/dl (32.0-36.0); MEAN CELL VOLUME 98.4 fl (80-96); MEAN PLT VOLUME 7.6 fl (7.5-11.1); NEUT % 73.3 % (42.8-82.8); PLATELET COUNT 292 K/MM3 (134-434); RBC 3.93 M/mm3 (3.60-5.2); RDW 13.9 % (11.6-15.6); WHITE BLOOD COUNT 10.2 K/mm3 (4.0-10.0)
[2019-03-19 15:45] LABS: URINE APPEARANCE CLEAR; URINE BILIRUBIN NEGATIVE (NEGATIVE); URINE COLOR YELLOW; URINE GLUCOSE (UA) NEGATIVE (NEGATIVE); URINE KETONE NEGATIVE (NEGATIVE); URINE LEUK ESTERASE NEGATIVE (NEGATIVE); URINE NITRITE NEGATIVE (NEGATIVE); URINE PROTEIN NEGATIVE (NEGATIVE)
[2019-03-19 16:08] LABS: ALBUMIN 3.8 g/dl (3.4-5.0); ALK PHOS 100 U/L (45-117); ANION GAP 4 MMOL/L (8-16); BILIRUBIN,TOTAL 0.3 mg/dL (0.2-1); BLOOD UREA NITROGEN 14 mg/dL (7-18); CALCIUM 9.3 mg/dL (8.5-10.1); CHLORIDE 105 mmol/L (98-107); CO2 29 mmol/L (21-32); CREATININE 0.9 mg/dL (0.55-1.3); GLUCOSE,RANDOM 88 mg/dL (74-106); POTASSIUM 4.2 mmol/L (3.5-5.1); SGOT/AST 16 U/L (15-37); SGPT/ALT 21 U/L (13-61); SODIUM 138 mmol/L (136-145); TOT PROT 7.8 g/dl (6.4-8.2)
--- NOTE | 2019-03-19 17:19 | PDOC ---
Documentation entered by Joycelyn Subramanian SCRIBE, acting as scribe for Fidel Rendon MD. Fidel Rendon MD: This documentation has been prepared by the Moris neff Collisia, SCRIBE, under my direction and personally reviewed by me in its entirety. I confirm that the documentation accurately reflects all work, treatment, procedures, and medical decision making performed by me. Attending Attestation - Resident Resident Name: BrittneeAbril - ED Attending Attestation I have performed the following: I have examined & evaluated the patient, The case was reviewed & discussed with the resident, I agree w/resident's findings & plan, Exceptions are as noted - HPI HPI: 03/19/19 14:05 The patient is a 48 year old female with a significant past medical history of asthma on home O2, lower back pain, and hypertension who presents to the emergency department with cold symptoms for 1 week. The patient states that she has had associated productive cough and body aches. She describes her cough as producing green phlegm, for 5 days, with some associated shortness of breath for 4 days only when she is coughing. The patient states that she has also been experiencing some mid left lower back back soreness that began after she was washing her hair in the sink 5 days ago. The pt states after she stood back up, she did so at an angle and the pain acutely began at that time. She reports some associated polyuria with her back pain. The patient reports taking excedrin at home with some relief of her symptoms. She also reports experiencing some constipation but had a normal BM yesterday. She denies any other symptoms or complaints of CP, headache, focal weakness or numbness, fevers , chills, rashes. - Physicial Exam PE: 03/19/19 17:05 GENERAL: Awake, alert, and fully oriented, in no acute distress EYES: PERRLA, EOMI, sclera anicteric, conjunctiva clear ENT: Nares patent, oropharynx clear without exudates. Moist mucosa NECK: Normal ROM, supple, no lymphadenopathy, JVD, or masses LUNGS: Breath sounds equal, clear to auscultation bilaterally. No wheezes, and no crackles (after nebs) HEART: Regular rate and rhythm, normal S1 and S2, no murmurs, rubs or gallops ABDOMEN: Soft, nontender, normoactive bowel sounds. No guarding, no rebound. No masses EXTREMITIES: Normal range of motion, no edema. No cords, erythema, or tenderness BACK: no midline cervical, thoracic, or lumbar ttp. +L upper lumbar paraspinal ttp NEUROLOGICAL: Normal speech, cranial nerves intact, negative pronator drift, 5/ 5 strength in all 4 extremities, normal sensation to light touch in all 4 extremities, normal cerebellar exam, normal gait, normal tone SKIN: Warm, Dry, normal turgor, no rashes or lesions noted. - Medical Decision Making 03/19/19 17:00 48yo F hx asthma, smoking presents to the ED with multiple complaints including cough, associated SOB, bodyaches as well as back pain and polyuria. On Dr. Meneses's initial exam, mild wheezing which resolved after nebs on my exam CXR neg for infiltrate In light of SOB, EKG checked that was unchanged compared to prior Labs unremarkable trop pending With regards to polyuria, UA neg for infection. Back pain all paraspinal, no midline pain and pt is neuro intact. Likely MSK strain after washing hair in sink. Pt feeling much better after nebs and tylenol, will await troponin, if negative , pt clinically stable for DC home. 03/19/19 17:30 Trop neg Pt feeling much better, well appearing Clinically stable for DC home I discussed the physical exam findings, ancillary test results and final diagnoses with the patient. I answered all of the patient's questions. The patient was satisfied with the care received and felt comfortable with the discharge plan and treatment plan. The patient will call their primary care physician within 24 hours to arrange follow-up and will return to the Emergency Department with any new, persistent or worsening symptoms. Heart Score/ECG Review #1 03/19/19 17:11 Twelve-lead EKG was performed and reviewed by me. Normal sinus rhythm, rate 73. Left axis deviation. Left anterior fascicular block. No ST elevations. When compared to EKG from 03/01/19, no sig changes
[2019-03-19 18:03] VITALS: BP 137/85; PULSE 73
--- NOTE | 2019-03-20 14:20 | EKG ---
Test Reason : Blood Pressure : / mmHG Vent. Rate : 073 BPM Atrial Rate : 073 BPM P-R Int : 156 ms QRS Dur : 090 ms QT Int : 414 ms P-R-T Axes : 050 -48 021 degrees QTc Int : 456 ms NORMAL SINUS RHYTHM LEFT ANTERIOR FASCICULAR BLOCK NONSPECIFIC T WAVE ABNORMALITY ABNORMAL ECG Confirmed by MD TOD, DARIO ([id number]) on 03/20/2019 2:20:31 PM Referred By: Confirmed By:DARIO BARON MD
== END 2019-03-19 18:10 | disposition home or self-care (01) ==
LOC: JER 13:02
PROC: 3E0F7GC Introduction of Other Therapeutic Substance into Respiratory Tract, Via Natural or Artificial Opening (ICD-10-PCS; principal; 2019-03-19)
PROC: 3E033NZ Introduction of Analgesics, Hypnotics, Sedatives into Peripheral Vein, Percutaneous Approach (ICD-10-PCS; 2019-03-19)
DX: J45.909 Unspecified asthma, uncomplicated (principal); Z99.81 Dependence on supplemental oxygen; M54.5 Low back pain; I10 Essential (primary) hypertension; M62.838 Other muscle spasm; F17.210 Nicotine dependence, cigarettes, uncomplicated
CPT/HCPCS: 36415; 71046-TC-FY; 80053; 81003; 84484; 84703; 85025; 87086; 93005; 93010; 94640; 96374; 99282-25; J0131

== ENCOUNTER 2019-11-13 13:26 | Emergency (ER) | payer SELFPAY ==
[2019-11-13 13:33] VITALS: BMI 38.7
--- NOTE | 2019-11-13 14:57 | PDOC ---
History of Present Illness - General Chief Complaint: Pain, Acute Stated Complaint: ABD / BACK PAIN Time Seen by Provider: 11/13/19 14:36 History Source: Patient Exam Limitations: No Limitations - History of Present Illness Initial Comments: 11/13/19 14:51 48 yo F menopausal ex smoker F w/ a h/o Asthma, HTN, COPD comes in c/o sudden onset of RUQ pain a week ago. Pain has since been intermittent, and is worse at night. Pain got worse yesterday 30 mns after eating a sausage/egg roll yesterday , Pain is sharp and radiates to the R side of the back (+)nausea, no vomiting, no diarrhea, (+)constipation for 2 days. No BM in 2 days. No fever, (+)chills, no cold symptoms (+)decrease in appetite No h/o kidney stones, no h/o gall stones. No burning/pain on urination 11/13/19 14:56 Pt was on antibiotics for a tooth infection and finished 10 days ago. Pt has taken motrin 800mg for pain (last dose yesterday morning) but it has not helped. 11/13/19 14:57 Past History - Past Medical History Allergies/Adverse Reactions: Allergies Allergy/AdvReac Type Severity Reaction Status Date / Time No Known Allergies Allergy Verified 11/13/19 13:33 Home Medications: Ambulatory Orders Albuterol Sulfate Inhaler - [Ventolin HFA Inhaler -] 1 - 2 inh PO QID 02/28/18 Mometasone/Formoterol [Dulera 100 Mcg/5 Mcg Inhaler] 10 gm IH DAILY 02/28/18 Montelukast Sodium [Singulair] 10 mg PO DAILY 02/28/18 Albuterol 2.5/Ipratropium 0.5 [Duoneb -] 1 amp NEB Q6H PRN #28 amp 03/02/18 Prednisone 20 mg PO DAILY 12/27/18 Asthma: Yes COPD: Yes Disorders: No Liver Disease: No - Immunization History Immunization Up to Date: Yes - Psycho Social/Smoking Cessation Hx Smoking History: Former smoker Have you smoked in the past 12 months: No Number of Cigarettes Smoked Daily: 8 If you are a former smoker, when did you quit?: 1 years ago Information on smoking cessation initiated: No 'Breaking Loose' booklet given: 03/01/18 Hx Alcohol Use: Yes Drug/Substance Use Hx: No Review of Systems - Review of Systems Able to Perform ROS?: Yes Constitutional: Yes: Chills. No: Fever, Malaise, Night Sweats HEENTM: No: Eye Pain, Recent change in vision, Throat Pain Respiratory: No: Cough, Shortness of Breath Cardiac (ROS): No: Chest Pain, Palpitations, Chest Tightness ABD/GI: Yes: Constipated, Nausea, Abdominal cramping. No: Diarrhea, Vomiting : No: Dysuria, Hematuria Integumentary: No: Rash Neurological: No: Headache, Numbness, Dizziness Psychiatric: Yes: Change in Appetite Endocrine: No: Unexplained Weight Loss *Physical Exam - Vital Signs Last Vital Signs Temp Pulse Resp BP Pulse Ox 99.9 F H 97 H 20 141/72 90 L 11/13/19 13:30 11/13/19 13:30 11/13/19 13:30 11/13/19 13:30 11/13/19 13:30 - Physical Exam General Appearance: Yes: Nourished, Obese. No: Apparent Distress HEENT: positive: KAMINI, Normal ENT Inspection, Normal Voice. negative: Pale Conjunctivae, Scleral Icterus (R), Scleral Icterus (L) Neck: positive: Supple. negative: Decreased range of motion, Tender midline Respiratory/Chest: positive: Lungs Clear, Normal Breath Sounds. negative: Respiratory Distress, Accessory Muscle Use Cardiovascular: positive: Regular Rhythm, Regular Rate Gastrointestinal/Abdominal: positive: Normal Bowel Sounds, Tender (diffuse non focal. (-)henao's sign, (-)tenderness at McBurney's point), Soft. negative: Guarding, Rebound Musculoskeletal: positive: Normal Inspection. negative: CVA Tenderness, Decreased Range of Motion Extremity: positive: Normal Capillary Refill, Normal Inspection, Normal Range of Motion. negative: Tender, Pedal Edema Integumentary: positive: Normal Color, Dry. negative: Jaundice, Rash Neurologic: positive: Fully Oriented, Alert, Normal Mood/Affect ED Treatment Course - LABORATORY CBC & Chemistry Diagram: 11/13/19 16:00 11/13/19 16:00 Medical Decision Making - Medical Decision Making 11/13/19 16:07 48 yo obese female with RUQ pain radiating to the back. Also w/ nausea/flank pain worse when eating fatty foods. Will line and lab, check UA, do a RUQ sono R /O GB stones, R sided kidney sono R/O stone. She also c/o constipation, will do an FUA R/O stool impaction. If all studies negative and pt still complains of pain, will do a CT Tylenol ordered for pain. 11/13/19 16:15 Change of shift, care of patient signed over to KENDRA Ramires who will continue care and decide on dispo plan Discharge - Discharge Information Problems reviewed: Yes Clinical Impression/Diagnosis: Abdominal pain - Follow up/Referral - Patient Discharge Instructions - Post Discharge Activity
[2019-11-13] MEDS ORDERED: ACETAMINOPHEN 1000 MG/100 ML VIAL (NON FORMULARY) IVPB ONE (15:03)
[2019-11-13] MEDS ORDERED: SODIUM CHLORIDE 1,000 ML IV STA (15:03)
[2019-11-13] MEDS ORDERED: ACETAMINOPHEN INJECTION 100 ML IVPB ONE (15:27)
[2019-11-13 16:26] LABS: BASO % 0.5 % (0-2.0); EOS % 0.5 % (0-4.5); EPI CELLS 0.8 /HPF (0-5/HPF); HEMATOCRIT 38.6 % (32.4-45.2); HEMOGLOBIN 12.7 GM/dL (10.7-15.3); HYALINE CASTS 8 /lpf (0-8); LYMPH % 16.9 % (8-40); MCH 32.2 pg (25.7-33.7); MCHC 32.9 g/dl (32.0-36.0); MEAN CELL VOLUME 97.9 fl (80-96); MEAN PLT VOLUME 7.2 fl (7.5-11.1); MONO % 7.9 % (3.8-10.2); NEUT % 74.2 % (42.8-82.8); PLATELET COUNT 284 K/MM3 (134-434); RBC 3.94 M/mm3 (3.60-5.2); URINE APPEARANCE CLEAR; URINE BACTERIA 3396.5 /hpf (NEGATIVE); URINE BILIRUBIN NEGATIVE (NEGATIVE); URINE COLOR YELLOW; URINE GLUCOSE (UA) NEGATIVE (NEGATIVE); URINE KETONE NEGATIVE (NEGATIVE); URINE LEUK ESTERASE 2+ (NEGATIVE); URINE NITRITE POSITIVE (NEGATIVE); URINE PROTEIN TRACE (NEGATIVE); URINE RBC 3 /hpf (0-4); URINE WBC 46 /hpf (0-5); WHITE BLOOD COUNT 11.8 K/mm3 (4.0-10.0)
[2019-11-13 16:51] LABS: ALBUMIN 3.8 g/dl (3.4-5.0); ALK PHOS 115 U/L (45-117); ANION GAP 8 MMOL/L (8-16); BILIRUBIN,TOTAL 0.3 mg/dL (0.2-1); BLOOD UREA NITROGEN 11.3 mg/dL (7-18); CALCIUM 8.8 mg/dL (8.5-10.1); CHLORIDE 101 mmol/L (98-107); CO2 28 mmol/L (21-32); CREATININE 1.1 mg/dL (0.55-1.3); GLUCOSE,RANDOM 95 mg/dL (74-106); LIPASE 128 U/L (73-393); POTASSIUM 3.9 mmol/L (3.5-5.1); SGOT/AST 22 U/L (15-37); SGPT/ALT 25 U/L (13-61); SODIUM 138 mmol/L (136-145)
[2019-11-13] MEDS ORDERED: CEFTRIAXONE 1,000 MG in DEXTROSE 5%-WATER - 50 ML IVPB ONE (20:56)
[2019-11-13] MEDS ORDERED: SODIUM PHOSPHATE/NA BIPHOS 133 ML ENEMA PR ONE (20:57)
[2019-11-13] MEDS ORDERED: CEFTRIAXONE 1 GM/50 ML BAG ONE (21:10)
--- NOTE | 2019-11-13 21:24 | PDOC ---
*Physical Exam - Vital Signs Last Vital Signs Temp Pulse Resp BP Pulse Ox 99.9 F H 97 H 20 141/72 90 L 11/13/19 13:30 11/13/19 13:30 11/13/19 13:30 11/13/19 13:30 11/13/19 13:30 - Physical Exam General Appearance: Yes: Nourished, Appropriately Dressed. No: Apparent Distress Gastrointestinal/Abdominal: positive: Tender (diffuse tenderness with no focal findings.), Flat, Soft. negative: Distended, Guarding, Rebound ED Treatment Course - LABORATORY CBC & Chemistry Diagram: 11/13/19 16:00 11/13/19 16:00 - ADDITIONAL ORDERS Additional order review: Laboratory Results 11/13/19 11/13/19 16:00 16:00 Sodium 138 Potassium 3.9 Chloride 101 Carbon Dioxide 28 Anion Gap 8 BUN 11.3 Creatinine 1.1 Est GFR (CKD-EPI)AfAm 68.27 Est GFR (CKD-EPI)NonAf 58.91 Random Glucose 95 Calcium 8.8 Total Bilirubin 0.3 AST 22 ALT 25 Alkaline Phosphatase 115 Creatine Kinase 104 Troponin I < 0.02 Total Protein 8.0 Albumin 3.8 Lipase 128 Beta HCG, Quant 3.2 Urine Color Yellow Urine Appearance Clear Urine pH 5.0 Ur Specific [place] 1.017 Urine Protein Trace Urine Glucose (UA) Negative Urine Ketones Negative Urine Blood Negative Urine Nitrite Positive H Urine Bilirubin Negative Urine Urobilinogen 1.0 Ur Leukocyte Esterase 2+ H Urine WBC (Auto) 46 Urine RBC (Auto) 3 Urine Casts (Auto) 8 U Epithel Cells (Auto) 0.8 Urine Bacteria (Auto) 3396.5 11/13/19 16:00 RBC 3.94 MCV 97.9 H MCHC 32.9 RDW 14.0 MPV 7.2 L Neutrophils % 74.2 Lymphocytes % 16.9 Monocytes % 7.9 Eosinophils % 0.5 Basophils % 0.5 - Medications Given in the ED: ED Medications Discontinued Medications Generic Name Dose Route Start Last Admin Trade Name Freq PRN Reason Stop Dose Admin Acetaminophen 1,000 mg 11/13/19 15:03 11/13/19 15:58 Ofirmev Injection - IVPB 11/13/19 15:04 1,000 mg ONCE ONE Administration Sodium Chloride 1,000 mls @ 1,000 mls/hr 11/13/19 15:03 11/13/19 15:58 Normal Saline - IV 11/13/19 16:02 1,000 mls/hr ASDIR STA Administration Medical Decision Making - Medical Decision Making 11/13/19 21:07 Sign out was given to me by KENDRA Mayes at 16:00 Pt was pending Abdominal ultrasound/abdominal x-ray at sign out UA shows 2+ leukocytes and (+) nitrites. Will treat for UTI; one dose ceftriaxone given in the ER Will treat with Keflex Ultrasound shows no cholecystitis, CBD is non-dilated. Gall bladder is contracted. X-ray shows moderate constipation Will give enema to go home with Pt feels better after IV tylenol DC home with GI follow up I discussed the physical exam findings, ancillary test results and final diagnoses with the patient. I answered all of the patient's questions. The patient was satisfied with the care received and felt comfortable with the discharge plan and treatment plan. The Patient agrees to follow up with the primary care physician/specialist within 24-72 hours. Return precautions were given. Discharge - Discharge Information Problems reviewed: Yes Clinical Impression/Diagnosis: Abdominal pain Qualifiers: Abdominal location: generalized Qualified Code(s): R10.84 - Generalized abdominal pain Constipation Qualifiers: Constipation type: unspecified constipation type Qualified Code(s): K59.00 - Constipation, unspecified UTI (urinary tract infection) Qualifiers: Urinary tract infection type: acute cystitis Hematuria presence: with hematuria Qualified Code(s): N30.01 - Acute cystitis with hematuria Condition: Stable Disposition: HOME - Admission No - Follow up/Referral Referrals: Boone Garcia MD [Staff Physician] - - Patient Discharge Instructions Patient Printed Discharge Instructions: DI for Urinary Tract Infection (UTI), DI for Abdominal Pain-Adult Additional Instructions: You were evaluated for your abdominal pain today. Your x-ray shows constipation and your urine shows no infection. Your ultrasound did not show evidence of gallstones at this time. Please take the enema as directed for your constipation. Take the antibiotics for the urinary tract infection as directed. Drink plenty of fluids. Follow-up with GI in regards to your upper abdominal pain for further work-up and management in a week. A referral has been provided to you. Return to the ER for worsening abdominal pain, vomiting, fevers or if you have any changes in your symptoms. - Post Discharge Activity Work/Back to School Note: Back to Work
[2019-11-13 22:25] VITALS: BP 140/82; PULSE 89; TEMP 98.4
== END 2019-11-13 22:26 | disposition home or self-care (01) ==
LOC: JER 13:26
PROC: 3E033NZ Introduction of Analgesics, Hypnotics, Sedatives into Peripheral Vein, Percutaneous Approach (ICD-10-PCS; principal; 2019-11-13)
PROC: 3E033GC Introduction of Other Therapeutic Substance into Peripheral Vein, Percutaneous Approach (ICD-10-PCS; 2019-11-13)
DX: R10.9 Unspecified abdominal pain (principal); Z87.891 Personal history of nicotine dependence; I10 Essential (primary) hypertension; J44.9 Chronic obstructive pulmonary disease, unspecified
CPT/HCPCS: 36415; 74021-TC-FY; 76700-TC; 76775-TC; 80053; 81003; 82550; 83690; 84484; 84702; 85025; 87086; 87186; 99283-25; J0131; J7030

== ENCOUNTER 2019-12-17 13:27 | Emergency (ER) | payer OTHER ==
--- NOTE | 2019-12-17 13:31 | PDOC ---
Rapid Medical Evaluation Time Seen by Provider: 12/17/19 13:29 Medical Evaluation: Allergies Allergy/AdvReac Type Severity Reaction Status Date / Time No Known Allergies Allergy Verified 12/17/19 13:29 12/17/19 13:29 I have performed a brief in-person evaluation of this patient. The patient presents with a chief complaint of:L lower abd pain x 1 week. Seen in ED 11/18 for constipation and tx w/ enema. States she thinks abd pain may be due to constipation though states she is having nl BMs. H/o HTN, asthma, s/p section remotely, smoker Pertinent physical exam findings:stable, defer rest to ED provider I have ordered the following:labs/urine The patient will proceed to the ED for further evaluation Discharge Disposition - Diagnosis Lower abdominal pain - Referrals - Patient Instructions - Post Discharge Activity
[2019-12-17 13:32] VITALS: BMI 39.1
[2019-12-17] MEDS ORDERED: LIDOCAINE 5% TOPICAL PATCH TP ONE (15:40)
--- NOTE | 2019-12-17 15:40 | PDOC ---
History of Present Illness - General History Source: Patient Exam Limitations: No Limitations <Terra Ramires - Last Filed: 12/18/19 17:44> <Yakelin Coffey - Last Filed: 12/20/19 11:49> - General Chief Complaint: Pain, Acute Stated Complaint: LT SIDE ABD PAIN Time Seen by Provider: 12/17/19 13:29 Past History - Travel Traveled outside of the country in the last 30 days: No Close contact w/someone who was outside of country & ill: No - Past Medical History Asthma: Yes COPD: Yes Disorders: No HTN: Yes Liver Disease: No - Immunization History Immunization Up to Date: Yes - Psycho Social/Smoking Cessation Hx Smoking History: Current every day smoker Have you smoked in the past 12 months: No Number of Cigarettes Smoked Daily: 8 If you are a former smoker, when did you quit?: 1 years ago Information on smoking cessation initiated: No 'Breaking Loose' booklet given: 03/01/18 Hx Alcohol Use: No Drug/Substance Use Hx: No <Terra Ramires - Last Filed: 12/18/19 17:44> <Yakelin Coffey - Last Filed: 12/20/19 11:49> - Past Medical History Allergies/Adverse Reactions: Allergies Allergy/AdvReac Type Severity Reaction Status Date / Time No Known Allergies Allergy Verified 12/17/19 13:29 Home Medications: Ambulatory Orders Albuterol Sulfate Inhaler - [Ventolin HFA Inhaler -] 1 - 2 inh PO QID 02/28/18 Montelukast Sodium [Singulair] 10 mg PO DAILY 02/28/18 Cephalexin [Keflex] 500 mg PO BID #13 capsule 12/17/19 Lidocaine 5% Patch [Lidoderm -] 1 patch TP DAILY #7 patch 12/17/19 Review of Systems - Review of Systems Able to Perform ROS?: Yes Comments:: 12/17/19 16:10 CONSTITUTIONAL: Absent: fever, chills, diaphoresis, generalized weakness, malaise, loss of appetite HEENT: Absent: rhinorrhea, nasal congestion, throat pain, throat swelling, difficulty swallowing, mouth swelling, ear pain, eye pain, visual Changes CARDIOVASCULAR: Absent: chest pain, loss of consciousness, palpitations, irregular heart rate, peripheral edema RESPIRATORY: Absent: cough, shortness of breath, dyspnea with exertion, orthopnea, wheezing, stridor, hemoptysis GASTROINTESTINAL: Absent: abdominal pain, abdominal distension, nausea, vomiting, diarrhea, constipation, melena, hematochezia GENITOURINARY: Present: L flank pain Absent: dysuria, frequency, urgency, hesitancy, hematuria , genital pain MUSCULOSKELETAL: Present: L hip pain Absent: myalgia, joint swelling SKIN: Absent: rash, itching, pallor HEMATOLOGIC/IMMUNOLOGIC: Absent: easy bleeding, easy bruising, lymphadenopathy, frequent infections ENDOCRINE: Absent: unexplained weight gain, unexplained weight loss, heat intolerance, cold intolerance NEUROLOGIC: Absent: headache, focal weakness or paresthesias, dizziness, unsteady gait, seizure, mental status changes, bladder or bowel incontinence PSYCHIATRIC: Absent: anxiety, depression, suicidal or homicidal ideation, hallucinations. Is the patient limited Tunisian proficient: No <Terra Ramires - Last Filed: 12/18/19 17:44> *Physical Exam - Vital Signs Last Vital Signs Temp Pulse Resp BP Pulse Ox 97.7 F 78 18 174/98 H 94 L 12/17/19 13:29 12/17/19 13:29 12/17/19 13:29 12/17/19 13:29 12/17/19 13:29 - Physical Exam 12/17/19 16:10 GENERAL: Well developed, well nourished. Awake and alert. No acute distress. HEENT: Normocephalic, atraumatic. PERRLA, EOMI. No conjunctival pallor. Sclera are non- icteric. Moist mucous membranes. Oropharynx is clear. NECK: Supple. Full ROM. No JVD. Carotid pulses 2+ and symmetric, without bruits. No thyromegaly. No lymphadenopathy. CARDIOVASCULAR: Regular rate and rhythm. No murmurs, rubs, or gallops. Distal pulses are 2+ and symmetric. PULMONARY: No evidence of respiratory distress. Lungs clear to auscultation bilaterally. No wheezing, rales or rhonchi. ABDOMINAL: TTP of the LLQ/suprapubic region. Soft. Non-distended. No rebound or guarding. No organomegaly. Normoactive bowel sounds. MUSCULOSKELETAL Normal range of motion at all joints. No bony deformities or tenderness. No CVA tenderness. (+) TTP of the L flank EXTREMITIES: No cyanosis. No clubbing. No edema. No calf tenderness. SKIN: Warm and dry. Normal capillary refill. No rashes. No jaundice. NEUROLOGICAL: Alert, awake, appropriate. Cranial nerves 2-12 intact. No deficits to light touch and temperature in face, upper extremities and lower extremities. No motor deficits in the in face, upper extremities and lower extremities. Normoreflexic in the upper and lower extremities. Normal speech. Toes are down- going bilaterally. Gait is normal without ataxia. PSYCHIATRIC: Cooperative. Good eye contact. Appropriate mood and affect. <Terra Ramires - Last Filed: 12/18/19 17:44> - Vital Signs Last Vital Signs Temp Pulse Resp BP Pulse Ox 98 F 81 17 150/89 99 12/17/19 17:43 12/17/19 17:43 12/17/19 17:43 12/17/19 17:43 12/17/19 17:43 <Yakelin Coffey - Last Filed: 12/20/19 11:49> ED Treatment Course - LABORATORY CBC & Chemistry Diagram: 12/17/19 15:32 12/17/19 15:32 <Terra Ramires - Last Filed: 12/18/19 17:44> - LABORATORY CBC & Chemistry Diagram: 12/17/19 15:32 12/17/19 15:32 - ADDITIONAL ORDERS Additional order review: 12/17/19 15:30 Urine Culture - Final Urine - Urine Clean Catch Escherichia Coli 12/17/19 15:32 RBC 3.88 MCV 98.1 H MCHC 33.4 RDW 14.4 MPV 7.4 L Neutrophils % 78.0 Lymphocytes % 17.2 Monocytes % 3.8 Eosinophils % 0.5 Basophils % 0.5 - Medications Given in the ED: ED Medications Discontinued Medications Generic Name Dose Route Start Last Admin Trade Name Freq PRN Reason Stop Dose Admin Acetaminophen 975 mg 12/17/19 15:41 12/17/19 16:35 Tylenol - PO 12/17/19 15:42 975 mg ONCE ONE Administration Cephalexin HCl 500 mg 12/17/19 16:39 12/17/19 17:43 Keflex - PO 12/17/19 16:40 500 mg ONCE ONE Administration Lidocaine 1 patch 12/17/19 15:40 12/17/19 16:42 Lidoderm Patch - TP 12/17/19 15:41 1 patch ONCE ONE Administration <Yakelin Coffey - Last Filed: 12/20/19 11:49> Medical Decision Making - Medical Decision Making 12/17/19 16:54 The patient is a 49 y/o F who presents to the ER with back pain/L lower abdominal pain. She states the pain is worse when walking and that the pain goes down her leg. She did have a recent urinary tract infection for which she did not finish her antibiotics. Denies fevers, chills, n/v/d, urinary symptoms, bladder/bowel incontinence and saddle anesthesia. A/P: back/abdominal pain (-) CVA tenderness on exam. No reproducible abdominal pain Pt has full ROM of the L leg Pain increases in the hip with walking Likely sciatica/MSK, however given recent UTI, will have basic labs and urine drawn Pt given tylenol and lidocaine patch Sign out given to KENDRA Woody <Terra Ramires - Last Filed: 12/18/19 17:44> - Medical Decision Making I reviewed the case with the mid-level practitioner and agree with the mid- level practitioner's assessment, diagnosis and disposition. <Yakelin Coffey - Last Filed: 12/20/19 11:49> Discharge - Discharge Information Problems reviewed: Yes <Terra Ramires - Last Filed: 12/18/19 17:44> <Yakelin Coffey - Last Filed: 12/20/19 11:49> - Discharge Information Clinical Impression/Diagnosis: Lower abdominal pain Condition: Stable Disposition: HOME - Additional Discharge Information Prescriptions: Cephalexin [Keflex] 500 mg PO BID #13 capsule Lidocaine 5% Patch [Lidoderm -] 1 patch TP DAILY #7 patch - Patient Discharge Instructions Patient Printed Discharge Instructions: DI for Urinary Tract Infection (UTI), DI for Abdominal Pain-Adult Additional Instructions: Thank you for choosing [facility]. It was a pleasure taking care of you. Take Tylenol every 4 hours as needed for pain Use lidocaine patch as directed You were given antibiotics for urine infection Drink at least 2L of water daily Follow-up with your doctor in 2 days Return to the Emergency Department if your symptoms worsen or persist or have other concerning symptoms.
[2019-12-17] MEDS ORDERED: ACETAMINOPHEN 325 MG TABLET (FP) PO ONE (15:41)
[2019-12-17 15:51] LABS: BASO % 0.5 % (0-2.0); EOS % 0.5 % (0-4.5); HEMOGLOBIN 12.7 GM/dL (10.7-15.3); LYMPH % 17.2 % (8-40); MCH 32.8 pg (25.7-33.7); MCHC 33.4 g/dl (32.0-36.0); MEAN CELL VOLUME 98.1 fl (80-96); MEAN PLT VOLUME 7.4 fl (7.5-11.1); MONO % 3.8 % (3.8-10.2); PLATELET COUNT 355 K/MM3 (134-434); RBC 3.88 M/mm3 (3.60-5.2); RDW 14.4 % (11.6-15.6); WHITE BLOOD COUNT 13.2 K/mm3 (4.0-10.0)
[2019-12-17 16:17] LABS: EPI CELLS 2.1 /HPF (0-5/HPF); HYALINE CASTS 0 /lpf (0-8); PH,URINE 5.5 (5.0-8.0); URINE APPEARANCE CLEAR; URINE BACTERIA 5734.7 /hpf (NEGATIVE); URINE BILIRUBIN NEGATIVE (NEGATIVE); URINE COLOR YELLOW; URINE GLUCOSE (UA) NEGATIVE (NEGATIVE); URINE KETONE NEGATIVE (NEGATIVE); URINE LEUK ESTERASE NEGATIVE (NEGATIVE); URINE NITRITE POSITIVE (NEGATIVE); URINE PROTEIN NEGATIVE (NEGATIVE); URINE RBC 1 /hpf (0-4); URINE WBC 2 /hpf (0-5)
[2019-12-17 16:25] LABS: ALBUMIN 3.8 g/dl (3.4-5.0); BILIRUBIN,TOTAL 0.4 mg/dL (0.2-1); CALCIUM 9.1 mg/dL (8.5-10.1); CREATININE 0.9 mg/dL (0.55-1.3); POTASSIUM 4.1 mmol/L (3.5-5.1); TOT PROT 8.1 g/dl (6.4-8.2)
[2019-12-17] MEDS ORDERED: ACETAMINOPHEN 325 MG TABLET (FP) ONE (16:26)
[2019-12-17] MEDS ORDERED: LIDOCAINE 5% TOPICAL PATCH ONE (16:29)
[2019-12-17] MEDS ORDERED: CEPHALEXIN MONOHYDRATE 500 MG CAPSULE (UD) PO ONE (16:39)
--- NOTE | 2019-12-17 17:20 | PDOC ---
*Physical Exam - Vital Signs Last Vital Signs Temp Pulse Resp BP Pulse Ox 97.7 F 78 18 174/98 H 98 12/17/19 13:29 12/17/19 13:29 12/17/19 13:29 12/17/19 13:29 12/17/19 16:44 <Kia Morris - Last Filed: 12/17/19 17:17> - Vital Signs Last Vital Signs Temp Pulse Resp BP Pulse Ox 98 F 81 17 150/89 99 12/17/19 17:43 12/17/19 17:43 12/17/19 17:43 12/17/19 17:43 12/17/19 17:43 <Yakelin Coffey - Last Filed: 12/17/19 18:47> ED Treatment Course - LABORATORY CBC & Chemistry Diagram: 12/17/19 15:32 12/17/19 15:32 - ADDITIONAL ORDERS Additional order review: Laboratory Results 12/17/19 12/17/19 12/17/19 15:32 15:30 15:30 Sodium 140 Potassium 4.1 Chloride 106 Carbon Dioxide 31 Anion Gap 3 L BUN 16.0 Creatinine 0.9 Est GFR (CKD-EPI)AfAm 86.41 Est GFR (CKD-EPI)NonAf 74.55 Random Glucose 85 Calcium 9.1 Total Bilirubin 0.4 AST 19 ALT 21 Alkaline Phosphatase 100 Total Protein 8.1 Albumin 3.8 Urine Color Yellow Urine Appearance Clear Urine pH 5.5 Ur Specific [place] 1.026 Urine Protein Negative Urine Glucose (UA) Negative Urine Ketones Negative Urine Blood Negative Urine Nitrite Positive H Urine Bilirubin Negative Urine Urobilinogen 1.0 Ur Leukocyte Esterase Negative Urine WBC (Auto) 2 Urine RBC (Auto) 1 Urine Casts (Auto) 0 U Epithel Cells (Auto) 2.1 Urine Bacteria (Auto) 5734.7 Urine HCG, Qual Negative 12/17/19 15:32 RBC 3.88 MCV 98.1 H MCHC 33.4 RDW 14.4 MPV 7.4 L Neutrophils % 78.0 Lymphocytes % 17.2 Monocytes % 3.8 Eosinophils % 0.5 Basophils % 0.5 - Medications Given in the ED: ED Medications Discontinued Medications Generic Name Dose Route Start Last Admin Trade Name Freq PRN Reason Stop Dose Admin Acetaminophen 975 mg 12/17/19 15:41 12/17/19 16:35 Tylenol - PO 12/17/19 15:42 975 mg ONCE ONE Administration Lidocaine 1 patch 12/17/19 15:40 12/17/19 16:42 Lidoderm Patch - TP 12/17/19 15:41 1 patch ONCE ONE Administration <AlexandraKia - Last Filed: 12/17/19 17:17> - LABORATORY CBC & Chemistry Diagram: 12/17/19 15:32 12/17/19 15:32 - ADDITIONAL ORDERS Additional order review: Laboratory Results 12/17/19 12/17/19 12/17/19 15:32 15:30 15:30 Sodium 140 Potassium 4.1 Chloride 106 Carbon Dioxide 31 Anion Gap 3 L BUN 16.0 Creatinine 0.9 Est GFR (CKD-EPI)AfAm 86.41 Est GFR (CKD-EPI)NonAf 74.55 Random Glucose 85 Calcium 9.1 Total Bilirubin 0.4 AST 19 ALT 21 Alkaline Phosphatase 100 Total Protein 8.1 Albumin 3.8 Urine Color Yellow Urine Appearance Clear Urine pH 5.5 Ur Specific [place] 1.026 Urine Protein Negative Urine Glucose (UA) Negative Urine Ketones Negative Urine Blood Negative Urine Nitrite Positive H Urine Bilirubin Negative Urine Urobilinogen 1.0 Ur Leukocyte Esterase Negative Urine WBC (Auto) 2 Urine RBC (Auto) 1 Urine Casts (Auto) 0 U Epithel Cells (Auto) 2.1 Urine Bacteria (Auto) 5734.7 Urine HCG, Qual Negative 12/17/19 15:32 RBC 3.88 MCV 98.1 H MCHC 33.4 RDW 14.4 MPV 7.4 L Neutrophils % 78.0 Lymphocytes % 17.2 Monocytes % 3.8 Eosinophils % 0.5 Basophils % 0.5 - Medications Given in the ED: ED Medications Discontinued Medications Generic Name Dose Route Start Last Admin Trade Name Freq PRN Reason Stop Dose Admin Acetaminophen 975 mg 12/17/19 15:41 12/17/19 16:35 Tylenol - PO 12/17/19 15:42 975 mg ONCE ONE Administration Cephalexin HCl 500 mg 12/17/19 16:39 12/17/19 17:43 Keflex - PO 12/17/19 16:40 500 mg ONCE ONE Administration Lidocaine 1 patch 12/17/19 15:40 12/17/19 16:42 Lidoderm Patch - TP 12/17/19 15:41 1 patch ONCE ONE Administration <Yakelin Coffey - Last Filed: 12/17/19 18:47> Medical Decision Making - Medical Decision Making Patient signed out to me by KENDRA Ellison Patient mentions improvement of pain after receiving Tylenol and Lidocaine patch Could be MSK pain given it is associated with movement UA noted with +nitrite, but no significant pyuria Patient denies urinary sxs D/W Dr. Coffey - recommends treatment Given Keflex stable for dc 12/17/19 17:17 <Kia Morris - Last Filed: 12/17/19 17:17> - Medical Decision Making I reviewed the case with the mid-level practitioner and agree with the mid- level practitioner's assessment, diagnosis and disposition. <Yakelin Coffey - Last Filed: 12/17/19 18:47> Discharge - Discharge Information Problems reviewed: Yes - Admission No - Additional Discharge Information Prescription Drug Monitoring Program (I-STOP) results: I-STOP not reviewed <Kia Morris - Last Filed: 12/17/19 17:17> <Yakelin Coffey - Last Filed: 12/17/19 18:47> - Discharge Information Clinical Impression/Diagnosis: Lower abdominal pain Condition: Stable Disposition: HOME - Additional Discharge Information Prescriptions: Cephalexin [Keflex] 500 mg PO BID #13 capsule Lidocaine 5% Patch [Lidoderm -] 1 patch TP DAILY #7 patch - Patient Discharge Instructions Patient Printed Discharge Instructions: DI for Urinary Tract Infection (UTI), DI for Abdominal Pain-Adult Additional Instructions: Thank you for choosing [facility]. It was a pleasure taking care of you. Take Tylenol every 4 hours as needed for pain Use lidocaine patch as directed You were given antibiotics for urine infection Drink at least 2L of water daily Follow-up with your doctor in 2 days Return to the Emergency Department if your symptoms worsen or persist or have other concerning symptoms.
[2019-12-17] MEDS ORDERED: CEPHALEXIN MONOHYDRATE 500 MG CAPSULE (UD) ONE (17:21)
[2019-12-17 17:44] VITALS: BP 150/89; PULSE 81; TEMP 98
== END 2019-12-17 17:44 | disposition home or self-care (01) ==
LOC: JER 13:27
DX: R10.30 Lower abdominal pain, unspecified (principal); F17.210 Nicotine dependence, cigarettes, uncomplicated; I10 Essential (primary) hypertension; J44.9 Chronic obstructive pulmonary disease, unspecified
CPT/HCPCS: 36415; 80053; 81003; 84703; 85025; 87086; 87186; 99284-25

== ENCOUNTER 2021-02-03 15:41 | Emergency (ER) | payer OTHER ==
[2021-02-03 15:48] VITALS: BP 166/101; PULSE 80; TEMP 98.6; BMI 43.7
[2021-02-03] MEDS ORDERED: SODIUM CHLORIDE 0.9% 500 ML INFUS.BAG IV ONE (16:30)
[2021-02-03] MEDS ORDERED: ACETAMINOPHEN 325 MG TABLET (FP) PO ONE (16:30)
[2021-02-03 16:56] LABS: URINE APPEARANCE CLEAR; URINE BILIRUBIN NEGATIVE (NEGATIVE); URINE COLOR YELLOW; URINE GLUCOSE (UA) NEGATIVE (NEGATIVE); URINE KETONE NEGATIVE (NEGATIVE); URINE LEUK ESTERASE NEGATIVE (NEGATIVE); URINE NITRITE NEGATIVE (NEGATIVE); URINE PROTEIN NEGATIVE (NEGATIVE)
[2021-02-03 17:01] LABS: BASO % 0.5 % (0-2.0); EOS % 0.8 % (0-4.5); HEMATOCRIT 38.5 % (32.4-45.2); HEMOGLOBIN 12.9 GM/dL (10.7-15.3); LYMPH % 16.8 % (8-40); MCH 33.4 pg (25.7-33.7); MCHC 33.6 g/dl (32.0-36.0); MEAN CELL VOLUME 99.5 fl (80-96); MEAN PLT VOLUME 7.4 fl (7.5-11.1); NEUT % 73.9 % (42.8-82.8); PLATELET COUNT 283 K/MM3 (134-434); RBC 3.87 M/mm3 (3.60-5.2); RDW 14.8 % (11.6-15.6); WHITE BLOOD COUNT 9.8 K/mm3 (4.0-10.0)
[2021-02-03 17:15] LABS: CHLORIDE 104 mmol/L (98-107); SODIUM 134 mmol/L (136-145)
[2021-02-03 17:17] LABS: CALCIUM 8.9 mg/dL (8.5-10.1)
[2021-02-03 17:18] LABS: ALBUMIN 3.5 g/dl (3.4-5.0); BLOOD UREA NITROGEN 17.6 mg/dL (7-18); CO2 30 mmol/L (21-32); GLUCOSE,RANDOM 85 mg/dL (74-106); LIPASE 70 U/L (73-393)
[2021-02-03 17:21] LABS: CREATININE 1.3 mg/dL (0.55-1.3); SGOT/AST 74 U/L (15-37)
[2021-02-03 17:22] LABS: BILIRUBIN,TOTAL 0.5 mg/dL (0.2-1); TOT PROT 8.2 g/dl (6.4-8.2)
[2021-02-03 17:23] LABS: ALK PHOS 110 U/L (45-117)
[2021-02-03 17:57] LABS: ANION GAP 1 MMOL/L (8-16); SGPT/ALT 37 U/L (13-61)
[2021-02-03 18:00] LABS: POTASSIUM 7.5 mmol/L (3.5-5.1)
[2021-02-03] MEDS ORDERED: ACETAMINOPHEN 325 MG TABLET (FP) ONE (18:13)
[2021-02-03 18:36] LABS: POTASSIUM 3.9 mmol/L (3.5-5.1)
[2021-02-03 18:39] LABS: BLOOD UREA NITROGEN 14.2 mg/dL (7-18); CALCIUM 8.2 mg/dL (8.5-10.1)
== END 2021-02-03 19:19 | disposition home or self-care (01) ==
LOC: JER 15:41
DX: K59.00 Constipation, unspecified (principal)
CPT/HCPCS: 36415; 71046-TC-FY; 80048; 80053; 81003; 82550; 82553; 83690; 84484; 84703; 85025; 87086; 87186; 93005; 93010; 99284-25

== ENCOUNTER 2022-05-15 23:03 | Inpatient (IN) | payer OTHER ==
[2022-05-15 23:22] VITALS: TEMP 98.5; BMI 42.5
[2022-05-16] MEDS ORDERED: MAGNESIUM SULF 50% (8.12 MEQ/2 ML-1 GM VIAL) IVPB ONE (00:20)
[2022-05-16] MEDS ORDERED: methylPREDNISolone NA SUCC 125 MG/2 ML VIAL IVPB ONE (00:20)
[2022-05-16] MEDS ORDERED: methylPREDNISolone NA SUCC 125 MG/2 ML VIAL ONE (00:36)
[2022-05-16] MEDS ORDERED: ALBUTEROL SO4 2.5/IPRATROPIUM 0.5 INH SOL 3 ML VIAL.NEB. NEB ONE ×3 (00:36→11:10)
[2022-05-16] MEDS ORDERED: MAGNESIUM SULFATE IN WATER 2 GM/50 ML IVPB IVPB ONE (00:36)
[2022-05-16] MEDS: ALBUTEROL SO4 2.5/IPRATROPIUM 0.5 INH SOL 3 ML VIAL.NEB. NEB SCH ×5 (00:48→12:01)
[2022-05-16 00:54] LABS: BASO % 0.4 % (0-2.0); EOS % 0.9 % (0-4.5); HEMATOCRIT 36.5 % (32.4-45.2); HEMOGLOBIN 12.3 GM/dL (10.7-15.3); LYMPH % 15.8 % (8-40); MCH 32.6 pg (25.7-33.7); MCHC 33.7 g/dl (32.0-36.0); MEAN CELL VOLUME 96.9 fl (80-96); MEAN PLT VOLUME 7.1 fl (7.5-11.1); MONO % 5.7 % (3.8-10.2); NEUT % 77.2 % (42.8-82.8); PLATELET COUNT 295 10^3/uL (134-434); RBC 3.76 M/mm3 (3.60-5.2); RDW 13.5 % (11.6-15.6); WHITE BLOOD COUNT 10.5 K/mm3 (4.0-10.0)
[2022-05-16 01:20] LABS: CALCIUM 8.9 mg/dL (8.5-10.1)
[2022-05-16 01:21] LABS: ALBUMIN 3.7 g/dl (3.4-5.0); BLOOD UREA NITROGEN 14.9 mg/dL (7-18)
[2022-05-16 01:24] LABS: CREATININE 0.8 mg/dL (0.55-1.3)
[2022-05-16 01:25] LABS: TOT PROT 7.9 g/dl (6.4-8.2)
[2022-05-16 01:26] LABS: BILIRUBIN,TOTAL 0.4 mg/dL (0.2-1)
[2022-05-16 01:29] LABS: N-TERMINAL BNP 118.7 pg/ml (5-125)
[2022-05-16 01:37] LABS: ACTIVATED PTT 23.8 SECONDS (25.2-36.5); INR 1.18 (0.83-1.09); PROTHROMBIN TIME (PATIENT) 13.6 SEC (9.7-13.0)
[2022-05-16] MEDS ORDERED: AZITHROMYCIN IVPB 500 MG in DEXTROSE 5%-WATER - 250 ML IVPB ONE (01:49)
[2022-05-16] MEDS ORDERED: AZITHROMYCIN IVPB 500 MG/250 ML BAG IVPB ONE (02:12)
[2022-05-16] MEDS ORDERED: clonazePAM 0.5 MG TABLET PO ONE (03:19)
[2022-05-16] MEDS ORDERED: ALBUTEROL SO4 HFA INHALER IH PRN (03:37)
[2022-05-16] MEDS ORDERED: ACETAMINOPHEN 325 MG TABLET (FP) PO PRN (04:19)
[2022-05-16] MEDS ORDERED: MELATONIN 5 MG TABLETS PO PRN (04:19)
[2022-05-16] MEDS ORDERED: ALBUTEROL SO4 0.5 % INH SOLN 2.5 MG/0.5 ML VIAL.NEB. NEB ONE (05:19)
[2022-05-16 07:25] LABS: HEMATOCRIT 35.6 % (32.4-45.2); HEMOGLOBIN 12.2 GM/dL (10.7-15.3); MCH 33.5 pg (25.7-33.7); MCHC 34.4 g/dl (32.0-36.0); MEAN CELL VOLUME 97.3 fl (80-96); MEAN PLT VOLUME 7.3 fl (7.5-11.1); PLATELET COUNT 301 10^3/uL (134-434); RBC 3.66 M/mm3 (3.60-5.2); RDW 13.2 % (11.6-15.6); WHITE BLOOD COUNT 8.4 K/mm3 (4.0-10.0)
[2022-05-16 07:50] LABS: CALCIUM 9.4 mg/dL (8.5-10.1)
[2022-05-16 07:51] LABS: BLOOD UREA NITROGEN 11.6 mg/dL (7-18); MAGNESIUM 2.6 mg/dL (1.8-2.4)
[2022-05-16 07:53] LABS: CREATININE 0.8 mg/dL (0.55-1.3); PHOSPHOROUS 3.1 mg/dL (2.5-4.9)
[2022-05-16 07:55] LABS: BILIRUBIN,TOTAL 0.6 mg/dL (0.2-1); TOT PROT 8.2 g/dl (6.4-8.2); TRIGLYCERIDES 64 mg/dL (0-150)
[2022-05-16 07:56] LABS: LDL CHOLESTEROL (ONLY SJRH) 133 mg/dL (5-100)
[2022-05-16 07:57] LABS: CHOLESTEROL 224 mg/dL (50-200)
[2022-05-16 07:58] LABS: HDL CHOLESTEROL 76 mg/dL (40-60)
[2022-05-16] MEDS ORDERED: ENOXAPARIN NA (PORCINE) 40 MG/0.4 ML DISP.SYRIN SQ SCH (10:00)
[2022-05-16] MEDS ORDERED: MONTELUKAST NA 10 MG TABLET PO SCH (10:00)
[2022-05-16] MEDS ORDERED: BUDESONIDE/FORMETEROL FUMARATE 160/4.5 mcg INHALER IH SCH (10:00)
[2022-05-16] MEDS ORDERED: amLODIPine BESYLATE 10 MG TABLET (FP) PO SCH (10:00)
[2022-05-16] MEDS ORDERED: methylPREDNISolone NA SUCC 40 MG/1 ML VIAL IVPUSH SCH (10:00)
[2022-05-16] MEDS ORDERED: amLODIPine BESYLATE 10 MG TABLET (FP) ONE (10:17)
[2022-05-16] MEDS ORDERED: methylPREDNISolone NA SUCC 40 MG/1 ML VIAL ONE (10:18)
[2022-05-16] MEDS ORDERED: MONTELUKAST NA 10 MG TABLET ONE (10:18)
[2022-05-16 10:41] VITALS: BP 138/89; PULSE 72
[2022-05-16] MEDS ORDERED: ENOXAPARIN NA (PORCINE) 40 MG/0.4 ML DISP.SYRIN SQ ONE (11:10)
[2022-05-16] MEDS ORDERED: ATORVASTATIN CA 80 MG TABLET (FP) PO SCH (22:00)
== END 2022-05-16 14:35 | disposition home or self-care (01) | DRG 202 ==
LOC: JER 23:03 → JERBED 05-16 02:34 → UNDOADMOB 05-16 02:34 → INTOOBSV 05-16 02:34 → JERBED 05-16 04:09 → JER 05-16 14:20 → JERBED 05-16 14:31 → UNDOADMOB 05-16 14:31 → UNDODISOB 05-16 14:35
PROVIDERS: ADMIT Hospitalist; ATTEND Hospitalist
DX: J45.901 Unspecified asthma with (acute) exacerbation (principal); J44.1 Chronic obstructive pulmonary disease with (acute) exacerbation; J96.11 Chronic respiratory failure with hypoxia; Z68.41 Body mass index [BMI] 40.0-44.9, adult; E66.01 Morbid (severe) obesity due to excess calories; I10 Essential (primary) hypertension; F41.0 Panic disorder [episodic paroxysmal anxiety]; R05.3 Chronic cough; G47.33 Obstructive sleep apnea (adult) (pediatric); R07.89 Other chest pain; F17.210 Nicotine dependence, cigarettes, uncomplicated; F41.9 Anxiety disorder, unspecified
CPT/HCPCS: 0241U-QW; 36415; 71045-TC-FY; 80053; 80061; 83036; 83735; 83880; 84100; 84484; 85025; 85027; 85610; 85730; 93005; 93010; 99291; 99292

== ENCOUNTER 2023-06-15 14:28 | Emergency (ER) | payer BC, OTHER ==
[2023-06-15 14:37] VITALS: BP 140/65; PULSE 69; RESP 18; TEMP 98.3; BMI 43.2
[2023-06-15] MEDS ORDERED: DEXAMETHASONE SOD PHOSPHATE 10 MG/1 ML VIAL IVPUSH ONE (15:45)
[2023-06-15] MEDS ORDERED: MAGNESIUM SULF 50% (8.12 MEQ/2 ML-1 GM VIAL) IVPB ONE (15:46)
[2023-06-15] MEDS ORDERED: MAGNESIUM SULFATE IN WATER 2 GM/50 ML IVPB IVPB ONE (16:22)
[2023-06-15] MEDS ORDERED: DEXAMETHASONE SOD PHOSPHATE 10 MG/1 ML VIAL ONE (16:22)
[2023-06-15] MEDS ORDERED: ALBUTEROL SO4 2.5/IPRATROPIUM 0.5 INH SOL 3 ML VIAL.NEB. NEB ONE ×2 (16:22→16:59)
[2023-06-15] MEDS ORDERED: SODIUM CHLORIDE 0.9% 500 ML INFUS.BAG IV ONE (16:24)
[2023-06-15] MEDS: ALBUTEROL SO4 2.5/IPRATROPIUM 0.5 INH SOL 3 ML VIAL.NEB. NEB SCH ×3 (16:31→18:02)
[2023-06-15 16:43] LABS: MCH 31.3 pg (25.7-33.7); MCHC 32.4 g/dl (32.0-36.0); MEAN CELL VOLUME 96.7 fl (80-96); MEAN PLT VOLUME 7.8 fl (7.5-11.1); NEUT % 74.7 % (42.8-82.8); PLATELET COUNT 335 10^3/uL (134-434); RBC 3.83 M/mm3 (3.60-5.2); RDW 14.9 % (11.6-15.6); WHITE BLOOD COUNT 10.6 K/mm3 (4.0-10.0)
[2023-06-15 16:44] LABS: BASO % 0.8 % (0-2.0); EOS % 1.1 % (0-4.5); LYMPH % 17.8 % (8-40); MONO % 5.6 % (3.8-10.2)
[2023-06-15 16:58] LABS: BLOOD UREA NITROGEN 9.6 mg/dL (7-18); POTASSIUM 4.1 mmol/L (3.5-5.1)
[2023-06-15 17:00] LABS: ALBUMIN 3.8 g/dl (3.4-5.0)
[2023-06-15 17:03] LABS: CREATININE 0.7 mg/dL (0.55-1.3)
[2023-06-15 17:04] LABS: BILIRUBIN,TOTAL 0.7 mg/dL (0.2-1); TOT PROT 7.8 g/dl (6.4-8.2)
== END 2023-06-15 18:43 | disposition home or self-care (01) ==
LOC: JER 14:28
PROC: 3E033GC Introduction of Other Therapeutic Substance into Peripheral Vein, Percutaneous Approach (ICD-10-PCS; principal; 2023-06-15)
PROC: 3E033GC Introduction of Other Therapeutic Substance into Peripheral Vein, Percutaneous Approach (ICD-10-PCS; 2023-06-15)
PROC: 3E0F7GC Introduction of Other Therapeutic Substance into Respiratory Tract, Via Natural or Artificial Opening (ICD-10-PCS; 2023-06-15)
DX: R06.02 Shortness of breath (principal); J45.901 Unspecified asthma with (acute) exacerbation
CPT/HCPCS: 36415; 71045-TC-FY; 80053; 85025; 93005; 93010; 94640; 96374; 96375; 99285-25; J1100

== ENCOUNTER 2024-01-01 15:13 | Inpatient (IN) | payer OTHER ==
[2024-01-01] MEDS ORDERED: ALBUTEROL SO4 2.5/IPRATROPIUM 0.5 INH SOL 3 ML VIAL.NEB. NEB ONE ×3 (16:10→18:39)
[2024-01-01] MEDS: ALBUTEROL SO4 2.5/IPRATROPIUM 0.5 INH SOL 3 ML VIAL.NEB. NEB SCH ×2 (16:23→16:50)
[2024-01-01 16:42] LABS: HEMATOCRIT 37.8 % (32.4-45.2); HEMOGLOBIN 12.4 GM/dL (10.7-15.3); MCH 31.8 pg (25.7-33.7); MCHC 32.7 g/dl (32.0-36.0); MEAN CELL VOLUME 97.1 fl (80-96); MEAN PLT VOLUME 7.4 fl (7.5-11.1); PLATELET COUNT 313 10^3/uL (134-434); RDW 15.5 % (11.6-15.6)
[2024-01-01] MEDS ORDERED: methylPREDNISolone NA SUCC 125 MG/2 ML VIAL ONE (17:13)
[2024-01-01] MEDS ORDERED: ACETAMINOPHEN INJECTION 100 ML IVPB ONE (17:13)
[2024-01-01] MEDS: ACETAMINOPHEN 1000 MG/100 ML BAG IVPB ONE (17:20)
[2024-01-01] MEDS: methylPREDNISolone NA SUCC 125 MG/2 ML VIAL IVPUSH ONE (17:20)
[2024-01-01 17:21] LABS: POTASSIUM 3.6 mmol/L (3.5-5.1)
[2024-01-01 17:23] LABS: ALBUMIN 3.7 g/dl (3.4-5.0); BLOOD UREA NITROGEN 11.3 mg/dL (7-18)
[2024-01-01 17:26] LABS: CREATININE 0.7 mg/dL (0.55-1.3)
[2024-01-01 17:28] LABS: BILIRUBIN,TOTAL 0.8 mg/dL (0.2-1); TOT PROT 7.7 g/dl (6.4-8.2)
[2024-01-01 17:31] LABS: N-TERMINAL BNP 79.1 pg/ml (5-125)
[2024-01-01 17:37] LABS: ANISOCYTOSIS 1+; MACROCYTOSIS 1+
[2024-01-01 18:55] LABS: VENOUS BASE EXCESS 3.2 mmol/L (-2-2); VENOUS O2 SATURATION 62.6 % (70-80); VENOUS PH 7.367 (7.310-7.410)
[2024-01-02] MEDS ORDERED: methylPREDNISolone NA SUCC 40 MG/1 ML VIAL ONE (00:58)
[2024-01-02] MEDS: methylPREDNISolone NA SUCC 40 MG/1 ML VIAL IVPUSH SCH (01:11)
[2024-01-02 01:34] VITALS: BMI 40.5
[2024-01-02 08:22] LABS: HEMATOCRIT 35.3 % (32.4-45.2); HEMOGLOBIN 12.1 GM/dL (10.7-15.3); MCH 33.3 pg (25.7-33.7); MCHC 34.2 g/dl (32.0-36.0); MEAN CELL VOLUME 97.2 fl (80-96); MEAN PLT VOLUME 7.5 fl (7.5-11.1); PLATELET COUNT 325 10^3/uL (134-434); RBC 3.63 M/mm3 (3.60-5.2); RDW 15.1 % (11.6-15.6); WHITE BLOOD COUNT 18.3 K/mm3 (4.0-10.0)
[2024-01-02 08:23] LABS: POTASSIUM 3.5 mmol/L (3.5-5.1)
[2024-01-02 08:28] LABS: BLOOD UREA NITROGEN 17.9 mg/dL (7-18); CALCIUM 9.3 mg/dL (8.5-10.1)
[2024-01-02 08:31] LABS: CREATININE 0.9 mg/dL (0.55-1.3)
[2024-01-02] MEDS: BUDESONIDE/FORMOTEROL FUMARATE 160-4.5 MCG (10.3 GM INHALER) IH SCH (09:42)
[2024-01-02] MEDS: AZITHROMYCIN IVPB 500 MG/250 ML BAG IVPB SCH (09:43)
[2024-01-02] MEDS: amLODIPine BESYLATE 10 MG TABLET (FP) PO SCH (09:43)
[2024-01-02 10:49] LABS: ANISOCYTOSIS 0; HELMET CELLS 0; HOWELL-JOLLY BODIES 0; MACROCYTOSIS 0; OVALOCYTE 0; ROULEAU 0; SICKELED CELLS 0; TARGET CELLS 0; TEAR DROP CELLS 0; TOXIC GRANULATION 0
[2024-01-02 11:56] LABS: EPI CELLS 6 /uL (0-25.1); HYALINE CASTS 2 /uL (0-3.1); PH,URINE 5.5 (5.0-8.0); URINE APPEARANCE CLEAR; URINE BACTERIA 270 /uL (0-1359); URINE BILIRUBIN NEGATIVE (NEGATIVE); URINE COLOR DK YELLOW; URINE GLUCOSE (UA) NEGATIVE (NEGATIVE); URINE KETONE 1+ (NEGATIVE); URINE LEUK ESTERASE NEGATIVE (NEGATIVE); URINE NITRITE NEGATIVE (NEGATIVE); URINE PROTEIN 1+ (NEGATIVE); URINE RBC 35 /uL (0-23.9)
[2024-01-02 12:23] LABS: URINE WBC 433 /uL (0-25.8)
[2024-01-02] MEDS: CEFTRIAXONE 1 GM in DEXTROSE 5%-WATER - 50 ML IVPB SCH (12:24)
[2024-01-02] MEDS: ALBUTEROL SO4 2.5/IPRATROPIUM 0.5 INH SOL 3 ML VIAL.NEB. NEB PRN (18:09)
[2024-01-02] MEDS: ACETAMINOPHEN 500 MG TABLET (FP) PO ONE (21:20)
[2024-01-02] MEDS: ATORVASTATIN CA 20 MG TABLET (FP) PO SCH (21:21)
[2024-01-02] MEDS: MONTELUKAST NA 10 MG TABLET PO SCH (21:21)
[2024-01-03 07:38] LABS: HEMATOCRIT 33.9 % (32.4-45.2); MCHC 32.5 g/dl (32.0-36.0); MEAN CELL VOLUME 98.3 fl (80-96); MEAN PLT VOLUME 7.5 fl (7.5-11.1); PLATELET COUNT 333 10^3/uL (134-434); RBC 3.44 M/mm3 (3.60-5.2); RDW 15.2 % (11.6-15.6); WHITE BLOOD COUNT 21.1 K/mm3 (4.0-10.0)
[2024-01-03 07:43] LABS: POTASSIUM 4.1 mmol/L (3.5-5.1)
[2024-01-03 07:50] LABS: BLOOD UREA NITROGEN 22.2 mg/dL (7-18)
[2024-01-03 07:53] LABS: CREATININE 0.7 mg/dL (0.55-1.3)
[2024-01-03 07:54] LABS: BILIRUBIN,TOTAL 0.3 mg/dL (0.2-1); TOT PROT 6.7 g/dl (6.4-8.2)
[2024-01-03 10:08] LABS: ANISOCYTOSIS 0; HELMET CELLS 0; HOWELL-JOLLY BODIES 0; MACROCYTOSIS 0; OVALOCYTE 0; ROULEAU 0; SICKELED CELLS 0; TARGET CELLS 0; TEAR DROP CELLS 0; TOXIC GRANULATION 0
[2024-01-03] MEDS: ACETAMINOPHEN 325 MG TABLET (FP) PO PRN (16:39)
[2024-01-04 09:22] LABS: HEMATOCRIT 37.7 % (32.4-45.2); HEMOGLOBIN 12.3 GM/dL (10.7-15.3); MCHC 32.6 g/dl (32.0-36.0); MEAN CELL VOLUME 98.2 fl (80-96); MEAN PLT VOLUME 7.1 fl (7.5-11.1); PLATELET COUNT 419 10^3/uL (134-434); RBC 3.84 M/mm3 (3.60-5.2); RDW 15.3 % (11.6-15.6); WHITE BLOOD COUNT 18.7 K/mm3 (4.0-10.0)
[2024-01-04 09:41] LABS: POTASSIUM 4.1 mmol/L (3.5-5.1)
[2024-01-04 09:57] LABS: CALCIUM 9.9 mg/dL (8.5-10.1)
[2024-01-04 09:58] LABS: ALBUMIN 3.5 g/dl (3.4-5.0); BLOOD UREA NITROGEN 22.8 mg/dL (7-18)
[2024-01-04 10:03] LABS: BILIRUBIN,TOTAL 0.3 mg/dL (0.2-1)
[2024-01-04 10:27] LABS: ANISOCYTOSIS 0; HELMET CELLS 0; HOWELL-JOLLY BODIES 0; MACROCYTOSIS 0; OVALOCYTE 0; ROULEAU 0; SICKELED CELLS 0; TARGET CELLS 0; TEAR DROP CELLS 0; TOXIC GRANULATION 0
[2024-01-04] MEDS: methylPREDNISolone NA SUCC 40 MG/1 ML VIAL IVPUSH SCH (21:19)
[2024-01-05 09:35] LABS: HEMATOCRIT 37.3 % (32.4-45.2); HEMOGLOBIN 11.8 GM/dL (10.7-15.3); MCH 31.2 pg (25.7-33.7); MCHC 31.6 g/dl (32.0-36.0); MEAN CELL VOLUME 98.7 fl (80-96); MEAN PLT VOLUME 7.4 fl (7.5-11.1); PLATELET COUNT 365 10^3/uL (134-434); RBC 3.78 M/mm3 (3.60-5.2); RDW 14.6 % (11.6-15.6); WHITE BLOOD COUNT 13.9 K/mm3 (4.0-10.0)
[2024-01-05 10:11] LABS: POTASSIUM 4.3 mmol/L (3.5-5.1)
[2024-01-05 10:20] LABS: CALCIUM 9.5 mg/dL (8.5-10.1)
[2024-01-05 10:21] LABS: ALBUMIN 3.2 g/dl (3.4-5.0); BLOOD UREA NITROGEN 19.6 mg/dL (7-18)
[2024-01-05 10:24] LABS: CREATININE 0.8 mg/dL (0.55-1.3)
[2024-01-05 10:26] LABS: BILIRUBIN,TOTAL 0.2 mg/dL (0.2-1); TOT PROT 7.1 g/dl (6.4-8.2)
[2024-01-05 11:41] LABS: ANISOCYTOSIS 1+; MACROCYTOSIS 1+
[2024-01-06 07:14] VITALS: BP 146/80; PULSE 58; RESP 18; TEMP 97.5
== END 2024-01-06 14:12 | disposition home health service (06) | DRG 202 ==
LOC: JER 15:13 → JERBED 19:24 → J7W 01-02 01:20
PROVIDERS: ADMIT Internal Medicine; ATTEND Internal Medicine
DX: J45.901 Unspecified asthma with (acute) exacerbation (principal); J44.1 Chronic obstructive pulmonary disease with (acute) exacerbation; J96.11 Chronic respiratory failure with hypoxia; Z68.41 Body mass index [BMI] 40.0-44.9, adult; I10 Essential (primary) hypertension; E11.9 Type 2 diabetes mellitus without complications; E78.5 Hyperlipidemia, unspecified; J98.4 Other disorders of lung; Z77.098 Contact with and (suspected) exposure to other hazardous, chiefly nonmedicinal, chemicals; E66.01 Morbid (severe) obesity due to excess calories; Z99.81 Dependence on supplemental oxygen
CPT/HCPCS: 0241U-QW; 36415; 71045-TC-FY; 71250-TC; 80048; 80053; 81003; 82375; 82803; 83735; 83880; 84484; 84703; 85025; 87040; 87086; 93005; 93010; 94150; 94640; 99291; J0131

== ENCOUNTER 2024-03-29 14:13 | Emergency (ER) | payer OTHER ==
[2024-03-29 14:32] VITALS: BMI 43.6
[2024-03-29] MEDS ORDERED: methylPREDNISolone NA SUCC 125 MG/2 ML VIAL ONE (15:04)
[2024-03-29] MEDS ORDERED: ALBUTEROL SO4 2.5/IPRATROPIUM 0.5 INH SOL 3 ML VIAL.NEB. NEB ONE (15:04)
[2024-03-29] MEDS: methylPREDNISolone NA SUCC 125 MG/2 ML VIAL IVPUSH ONE (15:16)
[2024-03-29] MEDS: ALBUTEROL SO4 2.5/IPRATROPIUM 0.5 INH SOL 3 ML VIAL.NEB. NEB SCH (15:16)
[2024-03-29 15:19] LABS: VENOUS O2 SATURATION 49.7 % (70-80); VENOUS PCO2 61.3 mmHg (38-52); VENOUS PH 7.329 (7.310-7.410)
[2024-03-29 15:20] LABS: BASO % 0.4 % (0-2.0); EOS % 0.1 % (0-4.5); HEMATOCRIT 35.1 % (32.4-45.2); HEMOGLOBIN 11.7 GM/dL (10.7-15.3); LYMPH % 8.5 % (8-40); MCHC 33.2 g/dl (32.0-36.0); MEAN CELL VOLUME 99.3 fl (80-96); MEAN PLT VOLUME 6.7 fl (7.5-11.1); MONO % 5.7 % (3.8-10.2); NEUT % 85.3 % (42.8-82.8); PLATELET COUNT 345 10^3/uL (134-434); RBC 3.54 M/mm3 (3.60-5.2); RDW 14.8 % (11.6-15.6); WHITE BLOOD COUNT 18.2 K/mm3 (4.0-10.0)
[2024-03-29 15:38] LABS: POTASSIUM 4.2 mmol/L (3.5-5.1)
[2024-03-29 15:40] LABS: ALBUMIN 3.5 g/dl (3.4-5.0); CALCIUM 9.5 mg/dL (8.5-10.1)
[2024-03-29 15:41] LABS: BLOOD UREA NITROGEN 17.3 mg/dL (7-18)
[2024-03-29 15:44] LABS: CREATININE 0.7 mg/dL (0.55-1.3)
[2024-03-29 15:45] LABS: TOT PROT 7.4 g/dl (6.4-8.2)
[2024-03-29 15:46] LABS: BILIRUBIN,TOTAL 0.3 mg/dL (0.2-1)
[2024-03-29 17:48] VITALS: BP 152/78; PULSE 72; RESP 17; TEMP 98.2
== END 2024-03-29 17:50 | disposition home or self-care (01) ==
LOC: JER 14:13
PROC: 3E030GC Introduction of Other Therapeutic Substance into Peripheral Vein, Open Approach (ICD-10-PCS; principal; 2024-03-29)
PROC: 3E0F7GC Introduction of Other Therapeutic Substance into Respiratory Tract, Via Natural or Artificial Opening (ICD-10-PCS; 2024-03-29)
DX: J44.9 Chronic obstructive pulmonary disease, unspecified (principal); R06.02 Shortness of breath; R60.0 Localized edema; Z20.822 Contact with and (suspected) exposure to COVID-19
CPT/HCPCS: 0241U-QW; 36415; 71046-TC-FY; 80053; 82803; 85025; 93005; 93010; 99285-25

== ENCOUNTER 2024-06-24 17:42 | Emergency (ER) | payer OTHER ==
[2024-06-24 17:57] VITALS: BP 125/83; PULSE 90; RESP 16; TEMP 98.2; BMI 39.6
[2024-06-24] MEDS ORDERED: KETOROLAC TROMETHAMINE 30 MG/1 ML VIAL ONE (19:00)
[2024-06-24] MEDS: KETOROLAC TROMETHAMINE 30 MG/1 ML VIAL IM ONE (19:08)
== END 2024-06-24 19:18 | disposition home or self-care (01) ==
LOC: JERFT 17:42 → JER 17:42 → JERFT 19:18
PROC: 3E0133Z Introduction of Anti-inflammatory into Subcutaneous Tissue, Percutaneous Approach (ICD-10-PCS; principal; 2024-06-24)
DX: M25.562 Pain in left knee (principal); G89.29 Other chronic pain; M25.462 Effusion, left knee
CPT/HCPCS: 73562-TC-LT-FY; 96372; 99284-25

== ENCOUNTER 2024-10-19 17:25 | Emergency (ER) | payer OTHER ==
[2024-10-19 17:35] VITALS: BP 126/81; PULSE 91; RESP 18; TEMP 98.7; BMI 41.9
[2024-10-19] MEDS ORDERED: ALBUTEROL SO4 2.5/IPRATROPIUM 0.5 INH SOL 3 ML VIAL.NEB. NEB ONE ×2 (18:59→19:38)
[2024-10-19] MEDS ORDERED: methylPREDNISolone NA SUCC 125 MG/2 ML VIAL ONE (19:00)
[2024-10-19] MEDS ORDERED: ACETAMINOPHEN INJECTION 100 ML ONE (19:00)
[2024-10-19 19:04] LABS: BASO % 0.4 % (0-2.0); HEMOGLOBIN 12.2 GM/dL (10.7-15.3); LYMPH % 18.7 % (8-40); MCH 32.1 pg (25.7-33.7); MCHC 32.9 g/dl (32.0-36.0); MEAN CELL VOLUME 97.5 fl (80-96); MEAN PLT VOLUME 6.9 fl (7.5-11.1); MONO % 6.3 % (3.8-10.2); NEUT % 73.6 % (42.8-82.8); PLATELET COUNT 397 10^3/uL (134-434); RDW 13.8 % (11.6-15.6); WHITE BLOOD COUNT 12.7 K/mm3 (4.0-10.0)
[2024-10-19 19:08] LABS: VENOUS BASE EXCESS 1.3 mmol/L (-2-2); VENOUS O2 SATURATION 59.3 % (70-80); VENOUS PCO2 53.1 mmHg (38-52); VENOUS PH 7.341 (7.310-7.410)
[2024-10-19] MEDS: ALBUTEROL SO4 2.5/IPRATROPIUM 0.5 INH SOL 3 ML VIAL.NEB. NEB SCH (19:12)
[2024-10-19] MEDS: methylPREDNISolone NA SUCC 125 MG/2 ML VIAL IVPUSH ONE (19:12)
[2024-10-19] MEDS: ACETAMINOPHEN 1000 MG/100 ML BAG IVPB ONE (19:12)
[2024-10-19 19:13] LABS: INR 1.06 (0.83-1.09); PROTHROMBIN TIME (PATIENT) 12.2 SEC (9.7-13.0)
[2024-10-19 19:24] LABS: POTASSIUM 3.4 mmol/L (3.5-5.1)
[2024-10-19 19:27] LABS: ALBUMIN 4.3 g/dl (3.4-5.0); CALCIUM 9.9 mg/dL (8.5-10.1)
[2024-10-19 19:28] LABS: BLOOD UREA NITROGEN 9.8 mg/dL (7-18)
[2024-10-19 19:31] LABS: CREATININE 0.8 mg/dL (0.55-1.3)
[2024-10-19 19:32] LABS: BILIRUBIN,TOTAL 0.3 mg/dL (0.2-1); TOT PROT 8.5 g/dl (6.4-8.2)
[2024-10-19 19:35] LABS: N-TERMINAL BNP 51.4 pg/ml (5-125)
[2024-10-19] MEDS ORDERED: MAGNESIUM SULFATE IN WATER 2 GM/50 ML IVPB IVPB ONE (19:38)
[2024-10-19] MEDS: MAGNESIUM 1GM/D5W - 1 GM/100 ML IVPB IVPB ONE (19:38)
[2024-10-19] MEDS ORDERED: DOXYCYCLINE HYCLATE 100 MG CAPSULE PO ONE (20:48)
[2024-10-19] MEDS: DOXYCYCLINE HYCLATE 100 MG CAPSULE PO ONE (20:48)
== END 2024-10-19 21:00 | disposition home or self-care (01) ==
LOC: JER 17:25
PROC: 3E033GC Introduction of Other Therapeutic Substance into Peripheral Vein, Percutaneous Approach (ICD-10-PCS; principal; 2024-10-19)
PROC: 3E033NZ Introduction of Analgesics, Hypnotics, Sedatives into Peripheral Vein, Percutaneous Approach (ICD-10-PCS; 2024-10-19)
PROC: 3E033GC Introduction of Other Therapeutic Substance into Peripheral Vein, Percutaneous Approach (ICD-10-PCS; 2024-10-19)
PROC: 3E0F7GC Introduction of Other Therapeutic Substance into Respiratory Tract, Via Natural or Artificial Opening (ICD-10-PCS; 2024-10-19)
DX: R06.02 Shortness of breath (principal); R05.9 Cough, unspecified; M25.562 Pain in left knee; G89.29 Other chronic pain; M79.89 Other specified soft tissue disorders; J06.9 Acute upper respiratory infection, unspecified; Z20.822 Contact with and (suspected) exposure to COVID-19
CPT/HCPCS: 0241U-QW; 36415; 71045-TC-FY; 80053; 82803; 83735; 83880; 84484; 85025; 85610; 85730; 93005; 93010; 99285-25; J0131

== ENCOUNTER 2025-01-15 14:20 | Emergency (ER) | payer OTHER ==
[2025-01-15 14:40] VITALS: RESP 18; BMI 39.9
[2025-01-15] MEDS: ALBUTEROL SO4 2.5/IPRATROPIUM 0.5 INH SOL 3 ML VIAL.NEB. NEB SCH (15:00)
[2025-01-15] MEDS: predniSONE 20 MG TABLET (UD) PO ONE (15:02)
[2025-01-15] MEDS ORDERED: predniSONE 20 MG TABLET (UD) ONE (15:10)
[2025-01-15] MEDS ORDERED: ALBUTEROL SO4 2.5/IPRATROPIUM 0.5 INH SOL 3 ML VIAL.NEB. NEB ONE ×2 (15:10→16:45)
[2025-01-15 18:35] VITALS: BP 140/87; PULSE 96; TEMP 98.4
[2025-01-15] MEDS ORDERED: ACETAMINOPHEN 325 MG TABLET (FP) ONE (19:22)
[2025-01-15] MEDS: ACETAMINOPHEN 500 MG TABLET (FP) PO ONE (19:26)
== END 2025-01-15 19:28 | disposition home or self-care (01) ==
LOC: JER 14:20
PROC: 3E0F7GC Introduction of Other Therapeutic Substance into Respiratory Tract, Via Natural or Artificial Opening (ICD-10-PCS; principal; 2025-01-15)
DX: J45.21 Mild intermittent asthma with (acute) exacerbation (principal); R05.9 Cough, unspecified; R60.0 Localized edema; Z20.822 Contact with and (suspected) exposure to COVID-19
CPT/HCPCS: 0241U-QW; 71046-TC-FY; 94640; 99284-25